=== PATIENT | female | born 1935 | race Caucasian/White ===

== ENCOUNTER 2016-11-26 07:02 | Outpatient (CLI) ==
[2015-12-06 11:27] VITALS: BMI 14.1
--- NOTE | 2016-11-26 08:34 | US ---
EXAM: Ultrasound retroperitoneal complete. HISTORY: Renal cyst. COMPARISON: 07/14/2016, 11/12/2010. TECHNIQUE: Multiple gustafson scale and color Doppler images. FINDINGS: Right kidney measures 8.9 x 3 x 3.1 cm. The left kidney measures 8.7 x 4.1 x 3.6 cm. Th in-walled circumscribed anechoic mass with posterior enhancement in the left kidney measures 2.5 x 1 .9 x 1.7 cm. Additional 0.6 x 0.5 x 0.4 cm anechoic mass seen in the left lower pole cortex. Bilat eral cortical thickness is normal. There is no hydronephrosis. Urinary bladder is unremarkable. IMPRESSION: Simple left renal cysts.
== END 2016-11-26 07:03 | disposition home or self-care (01) ==
LOC: RAD 07:02
PROVIDERS: ATTEND General Practice
DX: N28.1 Cyst of kidney, acquired (principal)
CPT/HCPCS: 76770

== ENCOUNTER 2016-12-10 09:03 | Outpatient (CLI) ==
[2015-12-06 11:27] VITALS: BMI 14.1
--- NOTE | 2016-12-10 10:49 | CT ---
EXAM: CT of the chest with contrast History: Follow-up lung nodules. Comparison: Chest CT 06/04/2016 Technique: Multiplanar CT images through the thorax were obtained following administration of IV con trast. Findings: Heart size is within normal limits. There is left atrial prominence. Coronary calcifica tions. Atherosclerotic vascular calcifications of the thoracic aorta. No pathologically enlarged t horacic lymph nodes. No consolidation. No pleural fluid and no pneumothorax. Mild emphysema. Focu s of subsegmental atelectasis again seen within the right lower lobe. Previously described lung nod ules are no longer seen. No suspicious lung masses or lung nodules. Within the visualized upper abdomen, left renal cyst. Cholecystectomy clips. No acute osseous abno rmalities. Impression: 1. No acute cardiopulmonary process. 2. Mild emphysema. 3. No suspicious lung masses or lung nodules.
== END 2016-12-10 09:04 | disposition home or self-care (01) ==
LOC: RAD 09:03
PROVIDERS: ATTEND Internal Medicine Hematology & Oncology
DX: R91.1 Solitary pulmonary nodule (principal)

== ENCOUNTER 2017-01-05 09:00 | Outpatient (CLI) | payer OTHER ==
[2015-12-06 11:27] VITALS: BMI 14.1
--- NOTE | 2017-01-05 09:46 | US ---
EXAM: RENAL ULTRASOUND, BILATERAL HISTORY: Left renal cyst, follow-up FINDINGS: Ultrasound renal, bilateral. Howe-scale ultrasound and color Doppler imaging was perform ed. The right kidney measures 9.0 x 3.4 x 3.8 centimeters. The left kidney measures 9.4 x 3.7 x 3.7 centimeters. General cortical echogenicity and volume are within normal limits for age. No hydronephrosis. The left kidney demonstrated three cystic masses one superiorly at 0.6 cm most consistent with a tin y simple cyst. A 1.9 cm cystic mass seen inferiorly may have a mildly thickened wall, otherwise sim ple. The largest cystic mass of the left kidney measured 2.9 x 0.5 x 1.9 cm and also may have areas of mild wall thickening. Otherwise simple. Urinary bladder was decompressed and grossly unremarka ble. IMPRESSION: Three left renal cortical cystic masses which appear to represent cysts although two of these have mildly thickened [place]. The cystic masses in this kidney visualized on previous exam of 11/26/2016 do not appear noticeably different when compared to today's exam. Renal cortical masses are best evaluated by renal protocol CT or MRI.
== END 2017-01-05 09:01 | disposition home or self-care (01) ==
LOC: RAD 09:00
PROVIDERS: ATTEND Internal Medicine Hematology & Oncology
DX: N28.1 Cyst of kidney, acquired (principal)
CPT/HCPCS: 76770

== ENCOUNTER 2017-01-22 12:00 | Outpatient (CLI) ==
[2015-12-06 11:27] VITALS: BMI 14.1
[2017-01-22 12:41] LABS: BILIRUBIN,URINE Negative (NEGATIVE); KETONES,URINE Negative (NEGATIVE); LEUKOCYTE ESTERASE ,URINE 3+ (NEGATIVE); NITRITE,URINE Positive (NEGATIVE); PH,URINE 5.5 (5-9); PROTEIN,URINE 1+ (NEGATIVE); URINE, BLOOD 2+ (NEGATIVE)
[2017-01-22 12:54] LABS: BASOPHILS % (AUTO) 0.6 % (0.0-3.0); EOSINOPHILS # (AUTO) 0.2 K/ul (0.0-0.7); EOSINOPHILS % (AUTO) 2.2 % (0.0-7.0); HEMATOCRIT 35.3 % (37.0-47.0); HEMOGLOBIN 11.5 g/dl (12.0-16.0); IMMATURE GRANULOCYTE % (AUTO) 0.4 % (0.0-5.0); LYMPHOCYTES # (AUTO) 2.2 K/uL (0.60-3.4); LYMPHOCYTES % (AUTO) 30.2 (10.0-50.0); MEAN CORPUSCULAR HEMOGLOBIN 32.6 pg (27.0-31.0); MEAN CORPUSCULAR HGB CONC 32.6 (31.8-35.4); MONOCYTES # (AUTO) 0.5 K/uL (0.4-2.0); MONOCYTES % (AUTO) 6.9 (0-10); NEUTROPHILS # (AUTO) 4.3 K/ul (2.0-6.9); NEUTROPHILS % (AUTO) 59.7; PLATELET COUNT 250 10^3/uL (140-440); RED BLOOD COUNT 3.53 10^6/ul (4.20-5.40); WHITE BLOOD COUNT 7.15 K/ul (4.6-10.2)
[2017-01-22 12:56] LABS: ADD URINE MICROSCOPIC YES
[2017-01-22 13:15] LABS: ALBUMIN 3.4 g/dL (3.4-5.0); ALBUMIN/GLOBULIN RATIO 0.87; ANION GAP 12.2; BILIRUBIN,TOTAL 0.29 mg/dL (0.00-1.20); BUN/CREATININE RATIO 19.26; CALCIUM 9.4 mg/dL (8.2-10.2); CHOL/HDL RATIO 2.4 (4.5-5.5); CREATININE 1.09 mg/dL (0.60-1.30); POTASSIUM 3.2 mmol/L (3.5-5.10); TOTAL PROTEIN 7.3 g/dL (5.8-8.1)
== END 2017-01-22 12:01 | disposition home or self-care (01) ==
LOC: LAB 12:00
PROVIDERS: ATTEND General Practice
DX: C18.9 Malignant neoplasm of colon, unspecified (principal); I65.29 Occlusion and stenosis of unspecified carotid artery; I10 Essential (primary) hypertension; N32.81 Overactive bladder; M81.0 Age-related osteoporosis without current pathological fracture; D51.9 Vitamin B12 deficiency anemia, unspecified; R31.29 Other microscopic hematuria; Z72.0 Tobacco use; Z79.899 Other long term (current) drug therapy
CPT/HCPCS: 36415; 80053; 80061; 81001; 82378; 85025; 87086; 87186

== ENCOUNTER 2017-03-26 15:47 | Outpatient (CLI) | payer OTHER ==
[2015-12-06 11:27] VITALS: BMI 14.1
[2017-03-26 16:28] LABS: BILIRUBIN,URINE 3+ (NEGATIVE); KETONES,URINE Trace (NEGATIVE); LEUKOCYTE ESTERASE ,URINE 3+ (NEGATIVE); NITRITE,URINE Positive (NEGATIVE); PH,URINE 5.5 (5-9); PROTEIN,URINE 3+ (NEGATIVE); URINE, BLOOD 3+ (NEGATIVE)
[2017-03-26 16:29] LABS: ADD URINE MICROSCOPIC YES
== END 2017-03-26 15:48 | disposition home or self-care (01) ==
LOC: LAB 15:47
PROVIDERS: ATTEND General Practice
DX: N39.0 Urinary tract infection, site not specified (principal)
CPT/HCPCS: 81001; 87086

== ENCOUNTER 2017-04-15 10:29 | Inpatient (IN) ==
[2017-04-15] MEDS ORDERED: NORCO 10-325 PO PRN (11:28)
[2017-04-15 12:01] VITALS: BMI 12.3
[2017-04-15] MEDS ORDERED: NORCO 10-325 ONE (12:31)
[2017-04-15 12:58] LABS: BASOPHILS % (AUTO) 0.3 % (0.0-3.0); EOSINOPHILS # (AUTO) 0.1 K/ul (0.0-0.7); EOSINOPHILS % (AUTO) 0.5 % (0.0-7.0); HEMATOCRIT 33.7 % (37.0-47.0); HEMOGLOBIN 11.7 g/dl (12.0-16.0); IMMATURE GRANULOCYTE % (AUTO) 0.5 % (0.0-5.0); LYMPHOCYTES # (AUTO) 1.8 K/uL (0.60-3.4); LYMPHOCYTES % (AUTO) 18.8 (10.0-50.0); MEAN CORPUSCULAR HEMOGLOBIN 32.6 pg (27.0-31.0); MEAN CORPUSCULAR HGB CONC 34.7 (31.8-35.4); MEAN CORPUSCULAR VOLUME 93.9 fl (81.0-99.0); MONOCYTES # (AUTO) 0.6 K/uL (0.4-2.0); MONOCYTES % (AUTO) 5.8 (0-10); NEUTROPHILS # (AUTO) 7.2 K/ul (2.0-6.9); NEUTROPHILS % (AUTO) 74.1; PLATELET COUNT 375 10^3/uL (140-440); RED BLOOD COUNT 3.59 10^6/ul (4.20-5.40); WHITE BLOOD COUNT 9.69 K/ul (4.6-10.2)
[2017-04-15] MEDS: INFUVITE ADULT 10 ML in D5%-1/2NS-KCL 20 MEQ/L IV SOL 1,000 ML IV SCH (13:21)
[2017-04-15] MEDS: PROTONIX IV 40 MG in SODIUM CHLORIDE 100 ML IV SCH ×2 (13:22→20:34)
[2017-04-15 13:36] LABS: ALBUMIN 3.1 g/dL (3.4-5.0); ALBUMIN/GLOBULIN RATIO 0.74; ANION GAP 15.2; BILIRUBIN,TOTAL 0.5 mg/dL (0.00-1.20); BUN/CREATININE RATIO 22.65; CALCIUM 9.2 mg/dL (8.2-10.2); CREATININE 1.28 mg/dL (0.60-1.30); POTASSIUM 3.2 mmol/L (3.5-5.10); TOTAL PROTEIN 7.3 g/dL (5.8-8.1)
[2017-04-15] MEDS: ATIVAN PO SCH ×2 (15:09→20:35)
[2017-04-15] MEDS: MEGACE PO SCH ×2 (16:54→20:35)
[2017-04-15] MEDS: LOVENOX SUBCUT SCH (16:55)
[2017-04-15 19:26] LABS: ADD URINE MICROSCOPIC YES; BILIRUBIN,URINE 3+ (NEGATIVE); KETONES,URINE Negative (NEGATIVE); LEUKOCYTE ESTERASE ,URINE 3+ (NEGATIVE); NITRITE,URINE Positive (NEGATIVE); PH,URINE 5.5 (5-9); PROTEIN,URINE 1+ (NEGATIVE); URINE, BLOOD 2+ (NEGATIVE)
[2017-04-15 19:40] LABS: BACTERIA,URINE 4+ (NOT PRESENT)
[2017-04-15] MEDS: ZOCOR PO SCH (20:35)
[2017-04-15] MEDS: AMBIEN PO SCH (20:35)
[2017-04-15] MEDS: NON-FORMULARY MEDICATION (Cyanocobalamin (Vitamin B-12) [Vitamin B-12] 1,000 MCG) PO SCH ×22 (20:35)
--- NOTE | 2017-04-15 20:42 | CT ---
EXAM: CT scan thorax without contrast HISTORY: Shortness of breath COMPARISON: CT scan thorax 12/10/2016 FINDINGS: Contiguous axial images were obtained through the thorax without contrast utilizing 5-mm collimation. Sagittal and coronal reconstructions were imaged and reviewed.. The thoracic inlet is unremarkable. The ascending aorta is ectatic measuring 3.4 cm. The heart is normal in size with co ronary artery calcification.. There is a 3 mm peripheral nodule within the right upper lobe. . The re are moderate emphysematous changes. There is no evidence of infiltrate or effusion. There has be en prior cholecystectomy. There are no lytic or blastic lesions. IMPRESSION: Chronic obstructive pulmonary disease. 3 mm nodule right upper lobe which merits follow-up.
--- NOTE | 2017-04-15 20:47 | CT ---
EXAM: CT abdomen pelvis without intravenous contrast 04/15/2017. Sagittal and coronal reformatted images obtained HISTORY: Abdominal pain COMPARISON: 06/04/2016 FINDINGS: The liver shows no acute abnormality. Gallbladder has been removed. The adrenal glands and kidneys show no acute abnormality. There is no urinary obstruction. The spleen and pancreas show no gross abnormality. Severe atherosclerotic vascular disease. No bowel obstruction. Tubular structure of the pelvis is c hronic. This may represent pessary. Unremarkable urinary bladder. No free air or free fluid. IMPRESSION: 1. No urinary or bowel obstruction. 2. Severe atherosclerotic vascular disease. 3. Status post cholecystectomy. 4. No acute inflammatory process identified within the abdomen or pelvis within the limitation of a noncontrast enhanced examination.
[2017-04-15] MEDS: DILAUDID 2 MG/ML SYRINGE IVP PRN (21:24)
[2017-04-16] MEDS ORDERED: INFUVITE ADULT IV ONE ×2 (04:23→17:03)
[2017-04-16] MEDS: INFUVITE ADULT 10 ML in D5%-1/2NS-KCL 20 MEQ/L IV SOL 1,000 ML IV SCH ×2 (04:31→17:16)
[2017-04-16] MEDS: DILAUDID 2 MG/ML SYRINGE IVP PRN ×3 (04:32→22:35)
[2017-04-16 05:08] LABS: BASOPHILS % (AUTO) 0.3 % (0.0-3.0); EOSINOPHILS # (AUTO) 0.1 K/ul (0.0-0.7); EOSINOPHILS % (AUTO) 1.4 % (0.0-7.0); HEMATOCRIT 30.6 % (37.0-47.0); HEMOGLOBIN 10.6 g/dl (12.0-16.0); IMMATURE GRANULOCYTE % (AUTO) 0.6 % (0.0-5.0); LYMPHOCYTES # (AUTO) 1.8 K/uL (0.60-3.4); MEAN CORPUSCULAR HEMOGLOBIN 32.7 pg (27.0-31.0); MEAN CORPUSCULAR HGB CONC 34.6 (31.8-35.4); MEAN CORPUSCULAR VOLUME 94.4 fl (81.0-99.0); MONOCYTES # (AUTO) 0.6 K/uL (0.4-2.0); MONOCYTES % (AUTO) 6.5 (0-10); NEUTROPHILS # (AUTO) 6.1 K/ul (2.0-6.9); NEUTROPHILS % (AUTO) 70.2; PLATELET COUNT 344 10^3/uL (140-440); RED BLOOD COUNT 3.24 10^6/ul (4.20-5.40); WHITE BLOOD COUNT 8.63 K/ul (4.6-10.2)
[2017-04-16 05:31] LABS: ALBUMIN 2.6 g/dL (3.4-5.0); ALBUMIN/GLOBULIN RATIO 0.7; ANION GAP 14.6; BILIRUBIN,TOTAL 0.37 mg/dL (0.00-1.20); BUN/CREATININE RATIO 22.09; CALCIUM 8.9 mg/dL (8.2-10.2); CREATININE 0.86 mg/dL (0.60-1.30); POTASSIUM 3.6 mmol/L (3.5-5.10); TOTAL PROTEIN 6.3 g/dL (5.8-8.1)
[2017-04-16] MEDS ORDERED: NON-FORMULARY MEDICATION (Amlodipine Besylate [Amlodipine Besylate] 5 MG) PO SCH (09:00)
[2017-04-16] MEDS: NORVASC PO SCH (09:35)
[2017-04-16] MEDS: LOVENOX SUBCUT SCH (09:36)
[2017-04-16] MEDS: MEGACE PO SCH ×2 (09:36→21:23)
[2017-04-16] MEDS: ATIVAN PO SCH ×3 (09:36→21:23)
[2017-04-16] MEDS: VITAMIN B-12 IM SCH (09:36)
[2017-04-16] MEDS: ASPIRIN EC PO SCH (09:36)
[2017-04-16] MEDS: PROTONIX IV 40 MG in SODIUM CHLORIDE 100 ML IV SCH ×2 (09:37→21:23)
--- NOTE | 2017-04-16 10:12 | PN ---
DATE OF VISIT: 04/15/17 This patient was admitted to the hospital because of abdominal pain, mostly upper. She had not been sleeping because of the pain. She presented herself to the emergency room last night and was discharged and instructed to see me today. The patient is alert and markedly emaciated, pale with sallow color. The patient, today, told me at the office that she would stop smoking. I had told her time and time again that she should stop smoking, but now she finally will try to stop. I had ordered a CT scan of the abdomen and pelvis, plus chest without contrast and they have not done it and it is now 7:50 p.m. I did advise the nurse to call x-ray to the procedure as soon as they can. This patient had a colon carcinoma and this was resected-right hemicolectomy. LUNGS: The lungs have diminished breath sounds, bilaterally, but no rales or wheezing. VITAL SIGNS: At 5:59 p.m. showed a temperature 97.6, pulse 57, blood pressure 161/60, respiratory rate 14, oxygen saturation 98 at room air. LABS: Showed normal WBC 9,690, hemoglobin 11.7, hematocrit 33.7. Chemistry showed slightly lower potassium at 3.2, BUN at 29, creatinine 1.28, E GFR 40. I am interested in what that will be tomorrow with some hydration. Liver panel is normal and urinalysis showed 2+ blood, positive nitrite, 3+ bilirubin, leukocyte esterase 3+, RBC 30-50, WBC 30-50, squamous cells 10-20, 4+ bacteria. This patient has a vaginal pessary. This will be repeated tomorrow with a midstream clean catch catheterized urine, plus culture is needed. No antibiotic is given at this time. Further tests will depend upon the results of the CT scan of the abdomen and pelvis and chest. CONDITION: Failure to thrive. PROGNOSIS: Poor. MTDD
[2017-04-16] MEDS: NON-FORMULARY MEDICATION (Cyanocobalamin (Vitamin B-12) [Vitamin B-12] 1,000 MCG) PO SCH ×44 (10:43→21:24)
[2017-04-16] MEDS: AMBIEN PO SCH (21:23)
[2017-04-16] MEDS: ZOCOR PO SCH (21:24)
[2017-04-17] MEDS: DILAUDID 2 MG/ML SYRINGE IVP PRN (04:11)
[2017-04-17] MEDS: INFUVITE ADULT 10 ML in D5%-1/2NS-KCL 20 MEQ/L IV SOL 1,000 ML IV SCH ×4 (06:42→21:38)
[2017-04-17] MEDS ORDERED: INFUVITE ADULT IV ONE ×2 (06:42→21:18)
[2017-04-17] MEDS: ASPIRIN EC PO SCH (07:56)
[2017-04-17] MEDS: PROTONIX IV 40 MG in SODIUM CHLORIDE 100 ML IV SCH ×2 (08:00→20:13)
[2017-04-17] MEDS: NORVASC PO SCH (09:17)
[2017-04-17] MEDS: LOVENOX SUBCUT SCH (09:17)
[2017-04-17] MEDS: MEGACE PO SCH ×2 (09:17→20:13)
[2017-04-17] MEDS: ATIVAN PO SCH ×3 (09:18→20:13)
[2017-04-17] MEDS: NON-FORMULARY MEDICATION (Cyanocobalamin (Vitamin B-12) [Vitamin B-12] 1,000 MCG) PO SCH ×44 (09:23→20:14)
[2017-04-17] MEDS ORDERED: DILAUDID 1 MG/ML SYRINGE IVP PRN (09:38)
[2017-04-17] MEDS: LEXAPRO PO SCH (13:27)
[2017-04-17] MEDS: DILAUDID 1 MG/ML SYRINGE IVP PRN ×2 (15:21→23:17)
[2017-04-17 18:06] LABS: BILIRUBIN,URINE Negative (NEGATIVE); KETONES,URINE Negative (NEGATIVE); LEUKOCYTE ESTERASE ,URINE 3+ (NEGATIVE); NITRITE,URINE Negative (NEGATIVE); PH,URINE 5.5 (5-9); PROTEIN,URINE Negative (NEGATIVE); URINE, BLOOD Trace-lysed (NEGATIVE)
[2017-04-17 18:08] LABS: ADD URINE MICROSCOPIC YES; BACTERIA,URINE TRACE (NOT PRESENT)
[2017-04-17] MEDS: ZOCOR PO SCH (20:13)
[2017-04-17] MEDS: AMBIEN PO SCH (20:13)
[2017-04-18] MEDS: DILAUDID 1 MG/ML SYRINGE IVP PRN ×3 (05:18→21:06)
[2017-04-18] MEDS ORDERED: INFUVITE ADULT IV ONE ×2 (07:43→21:03)
[2017-04-18] MEDS: PROTONIX IV 40 MG in SODIUM CHLORIDE 100 ML IV SCH ×2 (08:28→20:08)
[2017-04-18] MEDS: MEGACE PO SCH ×2 (08:28→20:08)
[2017-04-18] MEDS: LOVENOX SUBCUT SCH (08:29)
[2017-04-18] MEDS: NORVASC PO SCH (08:29)
[2017-04-18] MEDS: ASPIRIN EC PO SCH (08:29)
[2017-04-18] MEDS: LEXAPRO PO SCH (08:29)
[2017-04-18] MEDS: ATIVAN PO SCH ×3 (08:38→20:08)
[2017-04-18] MEDS: NON-FORMULARY MEDICATION (Cyanocobalamin (Vitamin B-12) [Vitamin B-12] 1,000 MCG) PO SCH ×44 (08:39→20:09)
[2017-04-18] MEDS: INFUVITE ADULT 10 ML in D5%-1/2NS-KCL 20 MEQ/L IV SOL 1,000 ML IV SCH ×2 (08:41→21:07)
[2017-04-18] MEDS ORDERED: PROTONIX IV ONE (19:49)
[2017-04-18] MEDS ORDERED: ROCEPHIN ONE ×2 (19:50→20:00)
[2017-04-18] MEDS ORDERED: ROCEPHIN 1 GM in SODIUM CHLORIDE 50 ML IV SCH (20:00)
[2017-04-18] MEDS ORDERED: SODIUM CHLORIDE 50 ML IV ONE (20:06)
[2017-04-18] MEDS: AMBIEN PO SCH (20:08)
[2017-04-18] MEDS ORDERED: SODIUM CHLORIDE 100 ML IV ONE (20:08)
[2017-04-18] MEDS: ZOCOR PO SCH (20:08)
[2017-04-19] MEDS: DILAUDID 1 MG/ML SYRINGE IVP PRN ×3 (02:57→19:19)
[2017-04-19] MEDS: MEGACE PO SCH ×2 (08:07→20:01)
[2017-04-19] MEDS: LOVENOX SUBCUT SCH (08:07)
[2017-04-19] MEDS: PROTONIX IV 40 MG in SODIUM CHLORIDE 100 ML IV SCH ×2 (08:07→20:45)
[2017-04-19] MEDS: NORVASC PO SCH (08:07)
[2017-04-19] MEDS: ATIVAN PO SCH ×3 (08:08→20:00)
[2017-04-19] MEDS: ASPIRIN EC PO SCH (08:08)
[2017-04-19] MEDS: LEXAPRO PO SCH (08:08)
[2017-04-19] MEDS: NON-FORMULARY MEDICATION (Cyanocobalamin (Vitamin B-12) [Vitamin B-12] 1,000 MCG) PO SCH ×44 (08:15→20:04)
[2017-04-19] MEDS ORDERED: INFUVITE ADULT IV ONE ×2 (09:22→18:43)
[2017-04-19] MEDS: INFUVITE ADULT 10 ML in D5%-1/2NS-KCL 20 MEQ/L IV SOL 1,000 ML IV SCH ×2 (09:56→21:49)
[2017-04-19] MEDS: NORCO 7.5-325 PO PRN (15:21)
[2017-04-19] MEDS: ROCEPHIN 1 GM in SODIUM CHLORIDE 50 ML IV SCH (20:00)
[2017-04-19] MEDS: AMBIEN PO SCH (20:01)
[2017-04-19] MEDS: ZOCOR PO SCH (20:01)
[2017-04-20] MEDS: DILAUDID 1 MG/ML SYRINGE IVP PRN ×3 (01:14→19:44)
[2017-04-20] MEDS: NORCO 7.5-325 PO PRN ×2 (05:10→16:43)
[2017-04-20] MEDS: NORVASC PO SCH (08:16)
[2017-04-20] MEDS: MEGACE PO SCH ×2 (08:16→20:40)
[2017-04-20] MEDS: LOVENOX SUBCUT SCH (08:16)
[2017-04-20] MEDS: ASPIRIN EC PO SCH (08:16)
[2017-04-20] MEDS: ATIVAN PO SCH ×3 (08:17→20:40)
[2017-04-20] MEDS: LEXAPRO PO SCH (08:17)
[2017-04-20] MEDS: NON-FORMULARY MEDICATION (Cyanocobalamin (Vitamin B-12) [Vitamin B-12] 1,000 MCG) PO SCH ×44 (08:45→20:40)
[2017-04-20] MEDS: PROTONIX IV 40 MG in SODIUM CHLORIDE 100 ML IV SCH ×2 (08:51→21:29)
[2017-04-20] MEDS ORDERED: INFUVITE ADULT IV ONE (11:24)
[2017-04-20] MEDS: INFUVITE ADULT 10 ML in D5%-1/2NS-KCL 20 MEQ/L IV SOL 1,000 ML IV SCH (11:31)
[2017-04-20] MEDS: ROCEPHIN 1 GM in SODIUM CHLORIDE 50 ML IV SCH (20:15)
[2017-04-20] MEDS: ZOCOR PO SCH (20:39)
[2017-04-20] MEDS: AMBIEN PO SCH (20:40)
[2017-04-21] MEDS ORDERED: INFUVITE ADULT IV ONE ×2 (01:24→14:14)
[2017-04-21] MEDS: NORCO 7.5-325 PO PRN ×3 (01:30→18:32)
[2017-04-21] MEDS: INFUVITE ADULT 10 ML in D5%-1/2NS-KCL 20 MEQ/L IV SOL 1,000 ML IV SCH ×2 (01:32→14:33)
[2017-04-21] MEDS: DILAUDID 1 MG/ML SYRINGE IVP PRN ×2 (04:59→14:38)
[2017-04-21] MEDS: ASPIRIN EC PO SCH (08:34)
[2017-04-21] MEDS: ATIVAN PO SCH ×3 (08:34→20:47)
[2017-04-21] MEDS: MEGACE PO SCH ×2 (08:34→20:47)
[2017-04-21] MEDS: NORVASC PO SCH (08:34)
[2017-04-21] MEDS: PROTONIX IV 40 MG in SODIUM CHLORIDE 100 ML IV SCH ×2 (08:34→20:48)
[2017-04-21] MEDS: LOVENOX SUBCUT SCH (08:35)
[2017-04-21] MEDS: LEXAPRO PO SCH (08:35)
[2017-04-21] MEDS: NON-FORMULARY MEDICATION (Cyanocobalamin (Vitamin B-12) [Vitamin B-12] 1,000 MCG) PO SCH ×44 (08:50→20:48)
[2017-04-21] MEDS ORDERED: WELLBUTRIN SR PO SCH (09:00)
[2017-04-21] MEDS: WELLBUTRIN PO SCH ×2 (09:32→20:47)
[2017-04-21] MEDS: NICODERM 21 MG TD SCH (09:32)
[2017-04-21] MEDS: AMBIEN PO SCH (20:47)
[2017-04-21] MEDS: ROCEPHIN 1 GM in SODIUM CHLORIDE 50 ML IV SCH (21:52)
[2017-04-22] MEDS: NORCO 7.5-325 PO PRN ×3 (02:34→18:48)
[2017-04-22] MEDS ORDERED: INFUVITE ADULT IV ONE ×2 (04:00→17:23)
[2017-04-22] MEDS: INFUVITE ADULT 10 ML in D5%-1/2NS-KCL 20 MEQ/L IV SOL 1,000 ML IV SCH ×2 (04:04→17:28)
[2017-04-22] MEDS: PROTONIX IV 40 MG in SODIUM CHLORIDE 100 ML IV SCH (08:31)
[2017-04-22] MEDS: LOVENOX SUBCUT SCH (08:32)
[2017-04-22] MEDS: MEGACE PO SCH ×2 (08:32→20:30)
[2017-04-22] MEDS: WELLBUTRIN PO SCH ×2 (08:32→20:30)
[2017-04-22] MEDS: NICODERM 21 MG TD SCH (08:32)
[2017-04-22] MEDS: ATIVAN PO SCH ×3 (08:32→20:30)
[2017-04-22] MEDS: LEXAPRO PO SCH (08:32)
[2017-04-22] MEDS: ASPIRIN EC PO SCH (08:32)
[2017-04-22] MEDS: NORVASC PO SCH (08:32)
[2017-04-22] MEDS: NON-FORMULARY MEDICATION (Cyanocobalamin (Vitamin B-12) [Vitamin B-12] 1,000 MCG) PO SCH ×44 (09:25→20:31)
[2017-04-22] MEDS ORDERED: DECADRON 4 MG/ML SDV IM STA (10:25)
[2017-04-22] MEDS ORDERED: DILAUDID 2 MG/ML SYRINGE IVP PRN ×2 (10:26)
[2017-04-22] MEDS: DILAUDID 1 MG/ML SYRINGE IVP PRN ×2 (11:37→20:31)
[2017-04-22] MEDS: VOLTAREN 1% GEL TP SCH ×2 (13:50→20:31)
[2017-04-22] MEDS: PROTONIX PO SCH (17:06)
[2017-04-22] MEDS ORDERED: DILAUDID 1 MG/ML SYRINGE ONE ×2 (19:22→20:31)
[2017-04-22] MEDS: ROCEPHIN 1 GM in SODIUM CHLORIDE 50 ML IV SCH (20:30)
[2017-04-22] MEDS: AMBIEN PO SCH (20:30)
[2017-04-23] MEDS ORDERED: DILAUDID 1 MG/ML SYRINGE ONE ×2 (03:06→03:09)
[2017-04-23] MEDS: DILAUDID 1 MG/ML SYRINGE IVP PRN (03:09)
[2017-04-23] MEDS: PROTONIX PO SCH (05:38)
[2017-04-23] MEDS: NORCO 7.5-325 PO PRN ×2 (06:31→13:06)
[2017-04-23] MEDS ORDERED: INFUVITE ADULT IV ONE (07:46)
[2017-04-23] MEDS: VOLTAREN 1% GEL TP SCH (08:11)
[2017-04-23] MEDS: WELLBUTRIN PO SCH (08:11)
[2017-04-23] MEDS: LEXAPRO PO SCH (08:12)
[2017-04-23] MEDS: ASPIRIN EC PO SCH (08:12)
[2017-04-23] MEDS: VITAMIN B-12 IM SCH (08:12)
[2017-04-23] MEDS: NORVASC PO SCH (08:12)
[2017-04-23] MEDS: MEGACE PO SCH (08:12)
[2017-04-23] MEDS: LOVENOX SUBCUT SCH (08:12)
[2017-04-23] MEDS: ATIVAN PO SCH (08:13)
[2017-04-23] MEDS: NON-FORMULARY MEDICATION (Cyanocobalamin (Vitamin B-12) [Vitamin B-12] 1,000 MCG) PO SCH ×22 (08:14)
[2017-04-23] MEDS: NICODERM 21 MG TD SCH (08:17)
[2017-04-23] MEDS: INFUVITE ADULT 10 ML in D5%-1/2NS-KCL 20 MEQ/L IV SOL 1,000 ML IV SCH (08:18)
[2017-04-23 10:22] VITALS: BP 136/66; TEMP 97.1
--- NOTE | 2017-04-30 14:58 | PN ---
DATE OF VISIT: 04/16/17 The patient, today, is alert and weighs the same. She told me that the pain is less. This patient is receiving Protonix 40 mg IV twice a day. The CT scan of the abdomen and pelvis is unremarkable, as well as the chest CT without contrast. This patient will need to stay here in the hospital for several days more. This patient has problems of not able to thrive. She did refuse to eat today and that would be a problem if she continues to refuse to eat. This patient is given Megace 400 mg twice a day. LUNGS: Diminished breath sounds, but no rales. HEART: Audible with good tones. ABDOMEN: Scaphoid with minimal tenderness in the epigastric area. Bowel sounds are active. This patient is emaciated. VITAL SIGNS: At 5:50 p.m. showed a temperature of 97.1, pulse 74, blood pressure 135/64, respiratory rate 12, oxygen saturation 97 at room air. LABS: The patient's BUN is down to 19 from 29 and the E GFR is now 63 and creatinine is 0.86 from 1.28. This patient will be given Glucerna and I advised the nurse to wait and see whether she drinks the supplement. MTDD
--- NOTE | 2017-07-16 11:00 | DS ---
DATE OF SERVICE: 04/23/17 PATIENT IDENTIFICATION: This is an 82-year-old female who was seen initially in the emergency room and was discharged and later seen at the office because of abdominal pain in the epigastric area. The patient denied any vomiting with the abdominal pain but did have anorexia. She had continued weight loss because of lack of appetite. The patient's CBC in the emergency room was unremarkable. Normal WBC with moderate anemia. The EGFR was diminished. The patient was alert and responsive except for the pain that she rated 10 on a scale of 1 to 10. No significant findings in examination except for the tenderness in the epigastric area which was remarkable but there are no masses. The lungs have diminished breath sounds but no rales or wheezing. Heart has normal sinus rhythm. CT scan of the abdomen and pelvis reveals no remarkable abnormalities. CT scan of the chest without contrast showed 3 mm nodule otherwise unremarkable. The patient's CBC on 04/15 and 04/16 was essentially the same. The BUN has decreased to 19 and GFR has returned to 63 from 40. CEA is 2.6, normal. TSH normal 1.315. Serum albumin is low but the total protein is normal. The patient was given Protonix 40 mg intravenously every 12 hours and Hydromorphone 1 mg intravenously q.6hr p.r.n. pain. She also was given Megace 400 mg twice a day. The patient's appetite had varied between 25 to 75% of the meals consumed. The patient had gained some weight and at the time of discharge she weighed 86 1/4 lbs from 73. Her blood pressure ranged within acceptable limits. She also was given Ceftriaxone 1 gm intravenously daily because of the chronic lung problems. She was also given intravenous fluids with electrolytes plus multivitamins during the course of her hospitalization. The patient at time of discharge was alert, ambulatory with some help looking much better and somewhat stronger. Lungs still clear although breath sounds are diminished. Heart is audible and regular with good tones. The epigastric pain is much less as well as tenderness. The patient is discharged with the following medications: Wellbutrin 75 mg twice a day, Omnicef 300 mg every 12 hours, Lexapro 10 mg daily, Megace 400 mg twice a day, Protonix 40 mg daily before a meal. Continue Amlodipine, aspirin, B12, Hydrocodone. The patient is advised to stop by the office to get weighed so we can get the weight in comparison with the next appointment. She was given an appointment 05/07/17 at 9:30 a.m. and should get in touch with the office if and when she has further problems. An appointment with GI doctor was also scheduled and is 06/15/[address] Mendoza's office. FINAL DIAGNOSES: 1. PEPTIC ULCER DISEASE, IMPROVED 2. ANOREXIA, ETIOLOGY UNDETERMINED, IMPROVED 3. HISTORY OF COLON CARCINOMA RESECTED THREE YEARS AGO 4. CHRONIC TOBACCO USE AND ABUSE, PERSISTENT 5. CHRONIC BRONCHITIS SECONDARY TO CHRONIC TOBACCO USE 6. ANEMIA, MODERATE 7. HYPERTENSION, CONTROLLED PROGNOSIS: Guarded to poor MTDD
== END 2017-04-23 15:39 | disposition home or self-care (01) | DRG 384 ==
LOC: MEDSURG A 10:29
PROVIDERS: ADMIT General Practice; ATTEND General Practice
DX: K27.3 Acute peptic ulcer, site unspecified, without hemorrhage or perforation (principal); F50.89 Other specified eating disorder; J44.9 Chronic obstructive pulmonary disease, unspecified; D64.9 Anemia, unspecified; I10 Essential (primary) hypertension; F17.200 Nicotine dependence, unspecified, uncomplicated; Z90.49 Acquired absence of other specified parts of digestive tract; Z85.038 Personal history of other malignant neoplasm of large intestine; Z96.0 Presence of urogenital implants; Z79.891 Long term (current) use of opiate analgesic; Z79.899 Other long term (current) drug therapy
CPT/HCPCS: 36415; 80053; 81001; 82378; 84443; 85025; 87086; 87186; 97802

== ENCOUNTER 2017-05-29 13:20 | Inpatient (IN) ==
[2017-05-29 13:43] VITALS: BMI 12.5
[2017-05-29] MEDS ORDERED: INFUVITE ADULT 10 ML in D5%-1/2NS-KCL 20 MEQ/L IV SOL 1,000 ML IV SCH (14:00)
[2017-05-29 14:16] LABS: BASOPHILS % (AUTO) 0.2 % (0.0-3.0); EOSINOPHILS % (AUTO) 0.1 % (0.0-7.0); HEMATOCRIT 36.2 % (37.0-47.0); HEMOGLOBIN 12.2 g/dl (12.0-16.0); IMMATURE GRANULOCYTE % (AUTO) 0.4 % (0.0-5.0); MEAN CORPUSCULAR HGB CONC 33.7 (31.8-35.4); MONOCYTES # (AUTO) 0.6 K/uL (0.4-2.0); MONOCYTES % (AUTO) 6.3 (0-10); NEUTROPHILS # (AUTO) 7.5 K/ul (2.0-6.9); PLATELET COUNT 381 10^3/uL (140-440); RED BLOOD COUNT 3.81 10^6/ul (4.20-5.40); WHITE BLOOD COUNT 9.18 K/ul (4.6-10.2)
--- NOTE | 2017-05-29 14:44 | DI ---
EXAM: Chest two view, frontal and lateral views. HISTORY: Initial presentation for a fall. Confusion. COMPARISON: 04/15/2017. FINDINGS: The heart size is normal. Atherosclerotic calcifications are present. There is no pulmon aubrie vascular congestion. The lungs are clear. No pleural effusion or pneumothorax is seen. No acut e osseous abnormality identified. Severe anterior wedging deformity of T12 noted which appears new IMPRESSION: 1. No acute cardiopulmonary abnormality. 1. Severe anterior wedging deformity of T12 which is new.
--- NOTE | 2017-05-29 14:45 | DI ---
EXAM: Radiographs, lumbar spine HISTORY: Initial presentation for back injury due to a fall. COMPARISON: Abdominal CT 04/15/2017. TECHNIQUE: Four views. FINDINGS: Curvature and alignment are normal. There is severe anterior wedging deformity of T12 whi ch is new from prior abdominal CT. Lumbar vertebral body heights are normal. Disc heights maintaine d. Mild endplate osteophyte formation and facet arthropathy noted. Extensive atherosclerotic calcif ications present. Clips seen in the right abdomen. IMPRESSION: Severe anterior wedging deformity of T12, new since 04/15/2017. Consider correlation with MRI.
--- NOTE | 2017-05-29 14:48 | DI ---
Exam: Three x-rays of the thoracic spine. Comparison: 04/15/2017. CT of the chest. Reason for exam: Confusion with fall. FINDINGS: Compression deformity in what is presumed to be the T12 vertebral body. The imaged osseou s structures appear diffusely demineralized. There is relative maintenance of the thoracic kyphotic curve. Impression: New compression deformity in what is presumed to be the T12 vertebral body with approximately 70% los s of vertebral body height. Report faxed at [id number] hours on 05/29/2017.
--- NOTE | 2017-05-29 15:09 | CT ---
Exam: CT of the brain without intravenous contrast. Comparison: CT sinuses performed 11/15/2014. Reason for exam: Confusion with fall. FINDINGS: No acute intracranial hemorrhage, mass effect, ventricular dilatation, or territorial infa rction. Parenchymal changes are seen consistent with chronic microvascular disease and age related a trophy. There are calcifications seen within the vertebral arteries. The quadrigeminal and ambient cisterns are patent. There is no extraaxial fluid collection. The calvarium is intact. The paranasal sinuses and mastoid air cells are unopacified. Impression: 1. No acute intracranial findings. 2. Parenchymal changes consistent with chronic microvascular disease and age related atrophy. Report faxed at 1502 hours on 05/29/2017
[2017-05-29] MEDS: DILAUDID 2 MG/ML SYRINGE IVP PRN ×2 (15:10→20:44)
--- NOTE | 2017-05-29 15:13 | CT ---
EXAM: CT cervical spine. HISTORY: Fall, contusion. TECHNIQUE: CT cervical spine without contrast. Detailed axial sections. Coronal and sagittal re-fo rmations. COMPARISON: None FINDINGS: No acute fracture or subluxation. There is normal vertebral body height and alignment. Facet joints are covered. Lateral masses of C1 and C2 are normally aligned and the odontoid process is intact. D egenerative disc and facet disease is present most apparent at C4/C5 and C5/C6 where there is mild ce ntral canal stenosis. There is mild bilateral neural foraminal narrowing at the C5/C6 level. Latera l masses of C1 and C2 are normally aligned and the odontoid process is intact. No paraspinal hematom a. IMPRESSION: No acute fracture or subluxation.
[2017-05-29 15:28] LABS: ALBUMIN 2.8 g/dL (3.4-5.0); ALBUMIN/GLOBULIN RATIO 0.62; ANION GAP 17.5; BILIRUBIN,TOTAL 0.97 mg/dL (0.00-1.20); CALCIUM 9.1 mg/dL (8.2-10.2); CREATININE 0.75 mg/dL (0.60-1.30); TOTAL PROTEIN 7.3 g/dL (5.8-8.1)
[2017-05-29 15:40] LABS: POTASSIUM 2.5 mmol/L (3.5-5.10)
[2017-05-29] MEDS ORDERED: BETAPACE PO STA (16:10)
--- NOTE | 2017-05-29 16:17 | RS.PTINEVL ---
Subjective - Patient information Date of Evaluation: 05/29/17 Date of Arrival on Unit: 05/29/17 Admitted From:: Home Usual Living Arrangement: With Spouse Home Environment: House, Stairs (few), No rail Medical History: Hypertension, COPD, Cancer (colon) Medical History Comments:: irregular heartbeat LATEX ALLERGY?: No Surgical History: Hysterectomy, Other (colon resection) Subjective Information/ Patient Comments:: pt admitted to hospital from home, s/ p fall at home. pt with new onset wedge compression fx T12. pt states she is feeling better this PM - Level of function Prior to this admission, the patient could do the following:: Independent Selfcare, Independent ADL's, Independent Ambulation Current Level of Function: Partially Dependent Current Equipment Used at Home: none Interventions - Objective Patient Orientation: Person, Place, Time, Situation Current Interventions: IV's, Telemetry Observation: pt with fragile skin. Range of Motion - ROM Right Upper Extremity AROM: WFL's Left Upper Extremity AROM: WFL's Right Lower Extremity AROM: WFL's Left Lower Extremity AROM: WFL's Muscle Strength - Muscle Strength Right Upper Extremity Strength: Mild Weakness (RUE shld flex 3+/5, elbow flex 4- /5, ext 3+/5) Left Upper Extremity Strength: Mild Weakness (LUE shld flex 3+/5, elbow flex 4-/ 5, ext 3+/5) Right Lower Extremity Strength: Mild Weakness (RLE hip flex 3+/5, knee flex/ext 4-/5, ankle Df/PF 4-/5) Left Lower Extremity Strength: Mild Weakness (LLE hip flex 3+/5, knee flex/ext 4 -/5, ankle Df/PF 4-/5) Sensation - Sensation Right Upper Extremity Sensation: Intact/Normal Left Upper Extremity Sensation: Intact/Normal Right Lower Extremity Sensation: Intact/Normal Left Lower Extremity Sensation: Intact/Normal Palpation Palpation Findings: None/Normal Balance - Sitting Balance and Reactions Static Sitting Balance: Good Dynamic Sitting Balance: Fair Sitting Protective Reactions: Delayed Left, Delayed Right - Standing Balance and Reactions Static Standing Balance: Fair Dynamic Standing Balance: Poor Standing Equilibrium Reactions: Delayed Left, Delayed Right Standing Protective Reactions: Delayed Left, Delayed Right Functional Mobility - Bed Mobility Rolling R/L: Min Assist Supine to Sit: Min Assist - Transfers Sit to Stand: Min Assist Stand to Sit: Min Assist - Safety Awareness Safety Awareness: Fair Ambulation - Ambulation Assistive Device Used: Gait belt (with CORN DETASSELER MACHINE OPERATOR) Orthotic/Prosthetic Device: No Distance: 5ft Assistance needed with Ambulation: Min Assist Gait Deviations: Forward posture, Short stride Ambulation Comments: pt amb approx 5ft with CORN DETASSELER MACHINE OPERATOR to chair. No further amb due to increased HR 160 at rest. Nsg staff aware. Treatment time - Time with patient Total treatment time: 27 Patient Education - Education Patient Education: Education of Plan of Care Teaching Recipient: Patient Teaching Methods: Discussion, Demonstration Comments: Discussed POC with pt and she verbalized understanding. pt goal is to return home with as independent as possible Assessment - Assessment Problem List:: Decreased level of function, Requires training/education, Decreased safety/Risk of falls, Weakness Rehab Potential: Good Further Therapy Indicated?: Yes Short Term Goals GOAL #1: pt transfer sup to/from sit to/from stand SBA to CGA Goal to be met by: 06/01/17 GOAL #2: pt amb with AAD 50ft with CGA with no loss of balance Goal to be met by: 06/01/17 GOAL #3: pt demonstrate independence positioning in bed for comfort/pressure relief Goal to be met by: 06/01/17 Flower Stripper Goals GOAL #1: pt tranfer independently sup to/from sit to/from stand Goal to be met by: 06/04/17 GOAL #2: pt amb functional distances with AAD independently with no loss of balance Goal to be met by: 06/04/17 GOAL #3: pt with improved strength BLE 4 to 4+/5 and indepenent with HEP Goal to be met by: 06/04/17 Plan Plan of Care: Therapeutic EX, Therapeutic Activity, Self-Care/Home Management Frequency of Treatment: 1-2 X day, as tolerated Duration of Treatment: 1 Week Anticipated Discharge Destination: Home
[2017-05-29] MEDS ORDERED: POTASSIUM CHLORIDE 20 MEQ VIAL-ADDITIVE ONLY IV ONE (16:20)
[2017-05-29] MEDS ORDERED: D5%-1/2NS-KCL 40 MEQ/L IV SOL 1,000 ML IV SCH (16:30)
[2017-05-29 16:33] LABS: TROPONIN I 0.03 ng/ml (0.0000-0.4000)
[2017-05-29] MEDS ORDERED: K-DUR PO STA (16:35)
[2017-05-29] MEDS: INFUVITE ADULT 10 ML in D5%-1/2NS-KCL 40 MEQ/L IV SOL 1,000 ML IV SCH (17:06)
[2017-05-29] MEDS: BETAPACE PO SCH (20:42)
[2017-05-29] MEDS ORDERED: POTASSIUM CHL 10% ORAL SOL PO SCH (21:00)
[2017-05-29] MEDS ORDERED: K-DUR PO ONE (21:00)
[2017-05-30] MEDS: DILAUDID 2 MG/ML SYRINGE IVP PRN ×5 (01:46→22:56)
[2017-05-30] MEDS ORDERED: INFUVITE ADULT IV ONE ×2 (04:15→17:04)
[2017-05-30] MEDS: INFUVITE ADULT 10 ML in D5%-1/2NS-KCL 40 MEQ/L IV SOL 1,000 ML IV SCH (04:23)
[2017-05-30 04:46] LABS: ADD URINE MICROSCOPIC YES; BILIRUBIN,URINE 3+ (NEGATIVE); KETONES,URINE Trace (NEGATIVE); LEUKOCYTE ESTERASE ,URINE 2+ (NEGATIVE); NITRITE,URINE Negative (NEGATIVE); PROTEIN,URINE 3+ (NEGATIVE); URINE, BLOOD 2+ (NEGATIVE)
[2017-05-30 04:47] LABS: BACTERIA,URINE 2+ (NOT PRESENT)
[2017-05-30 05:30] LABS: BASOPHILS % (AUTO) 0.3 % (0.0-3.0); EOSINOPHILS # (AUTO) 0.1 K/ul (0.0-0.7); EOSINOPHILS % (AUTO) 1.5 % (0.0-7.0); HEMATOCRIT 32.9 % (37.0-47.0); HEMOGLOBIN 10.5 g/dl (12.0-16.0); IMMATURE GRANULOCYTE % (AUTO) 0.6 % (0.0-5.0); LYMPHOCYTES # (AUTO) 1.5 K/uL (0.60-3.4); LYMPHOCYTES % (AUTO) 17.5 (10.0-50.0); MEAN CORPUSCULAR HEMOGLOBIN 31.5 pg (27.0-31.0); MEAN CORPUSCULAR HGB CONC 31.9 (31.8-35.4); MEAN CORPUSCULAR VOLUME 98.8 fl (81.0-99.0); MONOCYTES # (AUTO) 0.7 K/uL (0.4-2.0); NEUTROPHILS # (AUTO) 6.3 K/ul (2.0-6.9); NEUTROPHILS % (AUTO) 72.1; PLATELET COUNT 282 10^3/uL (140-440); RED BLOOD COUNT 3.33 10^6/ul (4.20-5.40); WHITE BLOOD COUNT 8.75 K/ul (4.6-10.2)
[2017-05-30 06:06] LABS: ALBUMIN 2.5 g/dL (3.4-5.0); ALBUMIN/GLOBULIN RATIO 0.69; ANION GAP 14.2; BILIRUBIN,TOTAL 0.59 mg/dL (0.00-1.20); BUN/CREATININE RATIO 25.33; CALCIUM 8.5 mg/dL (8.2-10.2); CREATININE 0.75 mg/dL (0.60-1.30); POTASSIUM 4.2 mmol/L (3.5-5.10); TOTAL PROTEIN 6.1 g/dL (5.8-8.1)
[2017-05-30] MEDS: HYDROCHLOROTHIAZIDE PO SCH (09:48)
[2017-05-30] MEDS: ASPIRIN EC PO SCH (09:49)
[2017-05-30] MEDS: K-DUR PO SCH ×2 (09:49→11:50)
[2017-05-30] MEDS: WELLBUTRIN SR PO SCH (09:49)
[2017-05-30] MEDS: BETAPACE PO SCH (09:49)
[2017-05-30] MEDS: NORVASC PO SCH (09:49)
[2017-05-30] MEDS: COREG PO SCH ×2 (11:50→17:09)
[2017-05-30] MEDS ORDERED: ZOFRAN 4 MG/2 ML IVP PRN (15:45)
[2017-05-30] MEDS: INFUVITE ADULT 10 ML in D5%-1/2NS-KCL 20 MEQ/L IV SOL 1,000 ML IV SCH (17:09)
[2017-05-30] MEDS: ATIVAN PO SCH ×2 (18:30→21:00)
[2017-05-30] MEDS: LOVENOX SUBCUT SCH (20:00)
[2017-05-31] MEDS: AMBIEN PO PRN ×2 (01:56→23:12)
[2017-05-31] MEDS: INFUVITE ADULT 10 ML in D5%-1/2NS-KCL 20 MEQ/L IV SOL 1,000 ML IV SCH ×2 (04:23→17:51)
[2017-05-31] MEDS ORDERED: INFUVITE ADULT IV ONE ×2 (04:26→17:48)
[2017-05-31 05:31] LABS: BASOPHILS % (AUTO) 0.2 % (0.0-3.0); EOSINOPHILS # (AUTO) 0.3 K/ul (0.0-0.7); EOSINOPHILS % (AUTO) 3.3 % (0.0-7.0); HEMATOCRIT 32.3 % (37.0-47.0); HEMOGLOBIN 10.5 g/dl (12.0-16.0); IMMATURE GRANULOCYTE % (AUTO) 0.6 % (0.0-5.0); LYMPHOCYTES # (AUTO) 1.4 K/uL (0.60-3.4); LYMPHOCYTES % (AUTO) 16.2 (10.0-50.0); MEAN CORPUSCULAR HEMOGLOBIN 32.4 pg (27.0-31.0); MEAN CORPUSCULAR HGB CONC 32.5 (31.8-35.4); MEAN CORPUSCULAR VOLUME 99.7 fl (81.0-99.0); MONOCYTES # (AUTO) 0.6 K/uL (0.4-2.0); MONOCYTES % (AUTO) 7.1 (0-10); NEUTROPHILS # (AUTO) 6.1 K/ul (2.0-6.9); NEUTROPHILS % (AUTO) 72.6; PLATELET COUNT 231 10^3/uL (140-440); RED BLOOD COUNT 3.24 10^6/ul (4.20-5.40); WHITE BLOOD COUNT 8.41 K/ul (4.6-10.2)
[2017-05-31 05:51] LABS: ALBUMIN 2.3 g/dL (3.4-5.0); ALBUMIN/GLOBULIN RATIO 0.66; ANION GAP 12.4; BILIRUBIN,TOTAL 0.51 mg/dL (0.00-1.20); BUN/CREATININE RATIO 15.15; CALCIUM 8.8 mg/dL (8.2-10.2); CREATININE 0.66 mg/dL (0.60-1.30); POTASSIUM 5.4 mmol/L (3.5-5.10); TOTAL PROTEIN 5.8 g/dL (5.8-8.1)
[2017-05-31] MEDS: DILAUDID 2 MG/ML SYRINGE IVP PRN ×3 (06:09→23:13)
[2017-05-31] MEDS: WELLBUTRIN SR PO SCH (08:47)
[2017-05-31] MEDS: ASPIRIN EC PO SCH (08:47)
[2017-05-31] MEDS: HYDROCHLOROTHIAZIDE PO SCH (08:47)
[2017-05-31] MEDS: COREG PO SCH ×2 (08:47→17:49)
[2017-05-31] MEDS: NORVASC PO SCH (08:47)
[2017-05-31] MEDS: ATIVAN PO SCH ×3 (08:50→20:01)
[2017-05-31] MEDS: INFUVITE ADULT 10 ML in DEXTROSE 5%-1/2NS IV SOLUTION 1,000 ML IV SCH (17:50)
[2017-05-31] MEDS: LOVENOX SUBCUT SCH (20:00)
[2017-06-01] MEDS: DILAUDID 2 MG/ML SYRINGE IVP PRN ×5 (04:52→23:34)
[2017-06-01 05:51] LABS: BASOPHILS % (AUTO) 0.5 % (0.0-3.0); EOSINOPHILS # (AUTO) 0.2 K/ul (0.0-0.7); EOSINOPHILS % (AUTO) 3.7 % (0.0-7.0); HEMATOCRIT 28.7 % (37.0-47.0); HEMOGLOBIN 9.6 g/dl (12.0-16.0); IMMATURE GRANULOCYTE % (AUTO) 0.3 % (0.0-5.0); LYMPHOCYTES # (AUTO) 1.2 K/uL (0.60-3.4); LYMPHOCYTES % (AUTO) 18.5 (10.0-50.0); MEAN CORPUSCULAR HEMOGLOBIN 31.9 pg (27.0-31.0); MEAN CORPUSCULAR HGB CONC 33.4 (31.8-35.4); MEAN CORPUSCULAR VOLUME 95.3 fl (81.0-99.0); MONOCYTES # (AUTO) 0.5 K/uL (0.4-2.0); MONOCYTES % (AUTO) 7.6 (0-10); NEUTROPHILS # (AUTO) 4.5 K/ul (2.0-6.9); NEUTROPHILS % (AUTO) 69.4; PLATELET COUNT 253 10^3/uL (140-440); RED BLOOD COUNT 3.01 10^6/ul (4.20-5.40); WHITE BLOOD COUNT 6.54 K/ul (4.6-10.2)
[2017-06-01 06:16] LABS: ALBUMIN 2.2 g/dL (3.4-5.0); ALBUMIN/GLOBULIN RATIO 0.67; ANION GAP 9.6; BILIRUBIN,TOTAL 0.38 mg/dL (0.00-1.20); BUN/CREATININE RATIO 13.43; CALCIUM 8.8 mg/dL (8.2-10.2); CREATININE 0.67 mg/dL (0.60-1.30); POTASSIUM 4.6 mmol/L (3.5-5.10); TOTAL PROTEIN 5.5 g/dL (5.8-8.1)
[2017-06-01] MEDS ORDERED: INFUVITE ADULT IV ONE ×3 (06:44→20:30)
[2017-06-01] MEDS: INFUVITE ADULT 10 ML in DEXTROSE 5%-1/2NS IV SOLUTION 1,000 ML IV SCH ×2 (06:49→20:32)
--- NOTE | 2017-06-01 09:56 | US ---
EXAM: Ultrasound abdomen complete. HISTORY: Anorexia. Abdominal pain COMPARISON: CT 04/15/2017 TECHNIQUE: Abdominal, real time with image documentation: Complete. FINDINGS: Liver: Normal. No intrahepatic biliary dilatation. Portal venous flow is normal direction. Gallbladder: Absent. Common bile duct: 0.7 cm. Pancreas: Visualized portions are unremarkable. Spleen: Normal, length 6.1 cm. Right kidney: 9.4 cm length. No hydronephrosis. Left kidney: 10.3 cm in length. Cyst measuring up to 2.4 cm diameter. No hydronephrosis. Aorta: Visualized portions are normal in caliber. IVC: Visualized portions are normal in caliber. IMPRESSION: No acute sonographic abnormality of the abdomen.
--- NOTE | 2017-06-01 10:56 | ECHO2D ---
Date of Exam: 05/30/17 Ordering Physician: OBDULIA PEREZ Reason for Echo: ARRHYTHMIA / SVT/FLUTTER/ SEVERE COPD Room #: SCU 1 M-Mode Normal Adult Results LV Dimensions Normal Adult Results AoV Opening excursions >1.6 >1.6 LVEDD-base- 3.5-5.8 3.8 Ao root dimensions 2.0-3.7 3.4 LVESD-base- 3.1-4.6 L. Atrium dimensions 1.9-3.8 4.0 Post. Wall thickness 0.8-1.1 1.0 IV septum (thickness) 0.7-1.2 1.1 Post. Wall excursion 0.72-1.3 NORMAL Septal motion NORMAL Systolic motion R. Ventricular cavity 1.5-2.0 3.0 LVEF 60% 64% Paradoxical septal wall motion NORMAL 2-D : MILD LEFT ATRIAL AND RIGHT VENTRICLE CAVITY ENLARGEMENT/ NO EFFUSION, NO THROMBUS, VALVES--NORMAL COLOR FLOW: MILD AORTIC REGURGITATION/ MITRAL REGURGITATION M-MODE: MV: NORMAL AV: NORMAL TV: NORMAL PV: CHAMBER SIZE: MILD LEFT ATRIAL AND RIGHT VENTRICLE CAVITY ENLARGEMENT WALL MOTION: NORMAL PERICARDIUM: NORMAL INTERPRETATION: 1. MILD LEFT ATRIAL AND RIGHT VENTRICLE CAVITY ENLARGEMENT 2. NORMAL LEFT VENTRICULAR CONTRACTILITY 3. NORMAL VALVES 4. MILD MITRAL REGURGITATION AND ATRIAL REGURGITATION MTDD
--- NOTE | 2017-06-01 11:27 | HOLTER ---
PATIENT INFORMATION AND COMMENTS Attending Physician: OBDULIA GALVAN Indications: ARRHYTHMIA __ Patient Medications: NORVASC, ASA, WELLBUTRIN, COREG, HCTZ, DILAUDID, AMBIEN __ Pre-procedure Summary: Protocol: Standard Heart Rate Started: 05/30/17 1120 Minimum: 59 BPM Weight: 72 LBS Ended: 05/31/17 1120 Maximum: 136 BPM Height: 65" Duration: 24 HRS Average: 77 BPM _ INTERPRETATIONS/OBSERVATIONS: 1. BASIC RHYTHM: SINUS, RATE 60 BPM TO 140 BPM, AVERAGE 77 BPM 2. PAC'S/ PVC'S INFREQUENT 3. FEW PAT/SVT NOTED, (FOUR TO FIFTEEN BEATS LONG) 4. NO ST-T WAVE CHANGES FROM BASELINE 5. ACTIVITY LOG NOT AVAILABLE MTDD
[2017-06-01] MEDS ORDERED: ATIVAN IVP STA (14:22)
[2017-06-01] MEDS: ATIVAN PO SCH ×2 (14:44→20:22)
[2017-06-01] MEDS: COREG PO SCH ×2 (16:37→17:29)
[2017-06-01] MEDS: HYDROCHLOROTHIAZIDE PO SCH (17:28)
[2017-06-01] MEDS: WELLBUTRIN SR PO SCH (17:29)
[2017-06-01] MEDS: NORVASC PO SCH (17:29)
[2017-06-01] MEDS: ASPIRIN EC PO SCH (17:29)
[2017-06-01 18:34] LABS: BILIRUBIN,URINE Negative (NEGATIVE); KETONES,URINE Negative (NEGATIVE); LEUKOCYTE ESTERASE ,URINE Negative (NEGATIVE); NITRITE,URINE Negative (NEGATIVE); PROTEIN,URINE Negative (NEGATIVE); URINE, BLOOD Trace-intact (NEGATIVE)
[2017-06-01 18:36] LABS: ADD URINE MICROSCOPIC YES
[2017-06-01] MEDS: LOVENOX SUBCUT SCH (20:21)
[2017-06-01] MEDS: AMBIEN PO PRN (21:51)
[2017-06-02] MEDS: DILAUDID 2 MG/ML SYRINGE IVP PRN ×4 (03:33→22:37)
[2017-06-02 05:23] LABS: BASOPHILS % (AUTO) 0.5 % (0.0-3.0); EOSINOPHILS # (AUTO) 0.2 K/ul (0.0-0.7); EOSINOPHILS % (AUTO) 3.8 % (0.0-7.0); HEMOGLOBIN 9.1 g/dl (12.0-16.0); IMMATURE GRANULOCYTE % (AUTO) 0.3 % (0.0-5.0); LYMPHOCYTES # (AUTO) 1.1 K/uL (0.60-3.4); LYMPHOCYTES % (AUTO) 19.4 (10.0-50.0); MEAN CORPUSCULAR HEMOGLOBIN 31.3 pg (27.0-31.0); MEAN CORPUSCULAR HGB CONC 32.5 (31.8-35.4); MEAN CORPUSCULAR VOLUME 96.2 fl (81.0-99.0); MONOCYTES # (AUTO) 0.6 K/uL (0.4-2.0); MONOCYTES % (AUTO) 9.6 (0-10); NEUTROPHILS # (AUTO) 3.9 K/ul (2.0-6.9); NEUTROPHILS % (AUTO) 66.4; PLATELET COUNT 261 10^3/uL (140-440); RED BLOOD COUNT 2.91 10^6/ul (4.20-5.40); WHITE BLOOD COUNT 5.83 K/ul (4.6-10.2)
[2017-06-02 05:51] LABS: ALBUMIN 2.1 g/dL (3.4-5.0); ALBUMIN/GLOBULIN RATIO 0.7; ANION GAP 8.8; BILIRUBIN,TOTAL 0.41 mg/dL (0.00-1.20); BUN/CREATININE RATIO 10.76; CALCIUM 8.4 mg/dL (8.2-10.2); CREATININE 0.65 mg/dL (0.60-1.30); POTASSIUM 3.8 mmol/L (3.5-5.10); TOTAL PROTEIN 5.1 g/dL (5.8-8.1)
[2017-06-02] MEDS ORDERED: INFUVITE ADULT IV ONE ×2 (07:31→20:01)
[2017-06-02] MEDS: INFUVITE ADULT 10 ML in DEXTROSE 5%-1/2NS IV SOLUTION 1,000 ML IV SCH ×2 (07:35→20:08)
--- NOTE | 2017-06-02 08:20 | DI ---
EXAM: Upper GI with small bowel follow-through. History: Anorexia and weight loss. Comparison: CT abdomen pelvis 04/15/2017 Technique: Patient was given oral barium and multiple spot films of the esophagus, stomach and duoden um were obtained in multiple projections. Small bowel follow-through was then performed. Findings: The course and caliber of the esophagus are within normal limits. Tertiary waves were seen within th e esophagus. No mucosal lesions within the esophagus. No hiatal hernia. Prominent gastric folds wi thin the stomach but no obvious ulceration. The duodenum is not dilated and no obvious ulceration is seen. The caliber of the small bowel is within normal limits. There is no small bowel obstruction. There was delayed transit of the contrast material through the colon. Contrast reached the colon after abo ut 8 hours. No extravasation of contrast. No small bowel wall thickening. Impression: Delayed transit of contrast through the small bowel. No small bowel obstruction. Examin ation was otherwise unremarkable.
[2017-06-02] MEDS: ASPIRIN EC PO SCH (09:06)
[2017-06-02] MEDS: COREG PO SCH ×2 (09:07→17:15)
[2017-06-02] MEDS: HYDROCHLOROTHIAZIDE PO SCH (09:07)
[2017-06-02] MEDS: ATIVAN PO SCH ×3 (09:07→20:08)
[2017-06-02] MEDS: NORVASC PO SCH (09:08)
[2017-06-02] MEDS: WELLBUTRIN SR PO SCH (09:08)
--- NOTE | 2017-06-02 10:54 | PN ---
DATE OF VISIT: 05/30/17 SUBJECTIVE: The patient was alert and responsive and somewhat better on 05/30/17. She still is not eating. She did complain of nausea and was given Zofran 4mg intervenously. At the time of my examination the nausea has already resolved after the Zofran was administered. On looking at the fluid balance the patient' s output is very small I don't know if they are measuring the urine all the time. She did have 100cc urine output and she positive for 2,700+cc. I don't know if this patient had been markedly behind fluids. Her potassium has now returned to normal at 4.2. Her initial potassium was 2.5. Chlorides were within normal as well as sodium. We will remove the oral potassium and reduce the IV potassium 20meq twice a day. The patient has moderate anemia after hydration. Anemia is probably mixed. The patient's TSH was 1.089 and her Free T3 is normal at 2.0pg/ml LUNGS: Clear to auscultation HEART: Normal sinus rhythm at the lower rate. This patient's heart rate has increased to 165 and sometimes 170. Sotalol was given at 80mg. The patient was seen by Dr. Gomez the sensory scientist because of the cardiac arrhythmias. The patient's WBC was 50 to 100, RBC 5-10. Leukocyte esterase 2+, urine bacteria 2+ . Preliminary culture gram negative rods. Urine collection was noted as random. This patient does not have any fever we will probably need to repeat urine, catheterize midstream and see if the results are the same. This patient has a pessary which would produce purulent material. CONDITION: About the same only slightly improved. MTDD
--- NOTE | 2017-06-02 11:10 | PN ---
DATE OF VISIT: 05/31/17 SUBJECTIVE: The patient today is alert with no respiratory distress. VITAL SIGNS: Temperature 98.2, pulse 94, blood pressure 170/79, respiratory rate 20 and oxygen saturation 96% on 2 liters nasal. LUNGS: Remain clear LABS: WBC remained normal, hgb and hct remained essentially the same as yesterday. Potassium now slightly above normal at 5.4. The IV potassium will limited to one bottle. The patient's EGFR is normal at 86 with a BUN of 10 and creatinine 0.66. Liver enzymes are normal. Her appetite is still very poor and the blood pressure is still uncontrolled. MTDD
[2017-06-02] MEDS: LOVENOX SUBCUT SCH (20:08)
[2017-06-02] MEDS ORDERED: MIRALAX PO SCH (22:00)
[2017-06-02] MEDS: MIRALAX PO SCH (22:37)
[2017-06-02] MEDS: AMBIEN PO PRN (23:35)
[2017-06-03] MEDS: DILAUDID 2 MG/ML SYRINGE IVP PRN ×2 (04:38→08:57)
[2017-06-03 05:08] LABS: BASOPHILS % (AUTO) 0.5 % (0.0-3.0); EOSINOPHILS # (AUTO) 0.2 K/ul (0.0-0.7); EOSINOPHILS % (AUTO) 2.5 % (0.0-7.0); HEMATOCRIT 28.3 % (37.0-47.0); HEMOGLOBIN 9.5 g/dl (12.0-16.0); IMMATURE GRANULOCYTE % (AUTO) 0.4 % (0.0-5.0); LYMPHOCYTES # (AUTO) 0.9 K/uL (0.60-3.4); LYMPHOCYTES % (AUTO) 11.8 (10.0-50.0); MEAN CORPUSCULAR HGB CONC 33.6 (31.8-35.4); MEAN CORPUSCULAR VOLUME 95.3 fl (81.0-99.0); MONOCYTES # (AUTO) 0.8 K/uL (0.4-2.0); MONOCYTES % (AUTO) 10.1 (0-10); NEUTROPHILS # (AUTO) 5.6 K/ul (2.0-6.9); NEUTROPHILS % (AUTO) 74.7; PLATELET COUNT 290 10^3/uL (140-440); RED BLOOD COUNT 2.97 10^6/ul (4.20-5.40); WHITE BLOOD COUNT 7.46 K/ul (4.6-10.2)
[2017-06-03 05:34] LABS: ALBUMIN 2.3 g/dL (3.4-5.0); ALBUMIN/GLOBULIN RATIO 0.7; ANION GAP 9.2; BILIRUBIN,TOTAL 0.45 mg/dL (0.00-1.20); BUN/CREATININE RATIO 10.44; CALCIUM 8.6 mg/dL (8.2-10.2); CREATININE 0.67 mg/dL (0.60-1.30); POTASSIUM 3.2 mmol/L (3.5-5.10); TOTAL PROTEIN 5.6 g/dL (5.8-8.1)
[2017-06-03 06:33] VITALS: TEMP 97.6
[2017-06-03] MEDS ORDERED: INFUVITE ADULT IV ONE (07:15)
[2017-06-03] MEDS: INFUVITE ADULT 10 ML in DEXTROSE 5%-1/2NS IV SOLUTION 1,000 ML IV SCH (08:57)
[2017-06-03] MEDS: COREG PO SCH (08:58)
[2017-06-03] MEDS: NORVASC PO SCH (08:58)
[2017-06-03] MEDS: WELLBUTRIN SR PO SCH (08:58)
[2017-06-03] MEDS: ASPIRIN EC PO SCH (08:58)
[2017-06-03] MEDS: HYDROCHLOROTHIAZIDE PO SCH (08:58)
[2017-06-03] MEDS: MIRALAX PO SCH (08:59)
[2017-06-03] MEDS: ATIVAN PO SCH (09:00)
--- NOTE | 2017-06-03 10:51 | HP ---
CHIEF COMPLAINT: Confusion, severe generalized weakness and anorexia last four days and recurrent fall four to five time in the last two days. SOURCE OF HISTORY: , reliability good HISTORY OF PRESENT ILLNESS: The patient about four to five days prior to presentation to the office and subsequent admission was noted to by the to be confused. She was standing and she did not know whether she had to move forwards or backwards. He has to ask for her to move. The patient also had fallen about 4-5 times since then. She also had not been eating in the last four days. The patient at the time of my examination at the office was generally weak more than I had ever had seen her before. She is still responsive. Because of the above confusion, increasing weakness and no food intake plus recurrent falls that the was patient was admitted to the hospital for the further examination and determination of the problem. This patient is still smoking. She has decreased the amount the cigarettes according to the . She had told me before on the last admission that she would stop smoking. PAST PERSONAL HISTORY: The patient known to be hypertension Hypercholesterolemia Cardiac arrhythmia Chronic tobacco use Chronic bronchitis Right hemicolectomy for colon carcinoma Previous colonoscopy Abdominal hysterectomy The patient had also been loosing weight and continued to smoke and was admitted to the hospital several weeks ago. The patient has gained weight during that admission and also continued at discharge. FAMILY HISTORY: Sister had Cancer of the reproductive organs Father had heart problems as well as stroke Mother had family cancer history SOCIAL HISTORY: The patient is and resides with her . She had one daughter who already had and has one grandson. MEDICATIONS: Aspirin 81mg daily Vitamin B12 1,000mcg twice a day Amlodipine 5mg daily Zolpidem 5mg tablet at bedtime Lorazepam 1.5mg three times a day Hydrocodone/Tylenol 10-325 three times a day as needed Wellbutrin 75mg twice a day Protonix 40mg daily Hydrochlorothiazide 12.5mg daily Vitamin B12 injectable ALLERGIES: Losartan REVIEW OF SYSTEMS: CONSTITUTIONAL: The patient alert, extremely weak. She is not able to walk on her own. She has no fever and no chills. CALL OUT OPERATOR: The patient was confused and was standing and didn't know whether to move forward or backwards. No seizure problems. Denies any headaches, weakness of other left of right upper or lower extremities. VISUAL: Denies any double vision or loss of vision. AUDITORY: hearing is decreased and denies any ringing. RESPIRATORY: The patient has cough but probably from smoking but no shortness of breath CARDIOVASCULAR: Denies any chest pain or chest tightness GASTROINTESTINAL: The patient is anorexic and had not had any food since about four days ago. GENITOURINARY: The patient denies any dysuria and is incontinent of urine at times. MUSCULOSKELETAL: The patient has pain in the back and has recent compression fracture of T12. ENDOCRINE: Negative. The patient is continuously losing weight but it maybe due to her smoking and loss of appetite rather than hyperthyroidism. INTEGUMENT: No rash or pleuritis HEMATOLOGIC: The patient has not had any history of prolonged bleeding or easy bruising. PSYCHIATRIC: Affect is OK. PHYSICAL EXAMINATION: GENERAL: We have an 82 year old female admitted to the hospital because of severe weakness, anorexia, confusion and fall with back pain. VITAL SIGNS: Temperature 96.2, pulse 112, blood pressure left 176/118 and right 168/110, respiratory rate 18 with oxygen saturation 96% at room air. She is 5'4 " 72 pounds and 15.56 ounces. BMI 12.5 GENERAL APPEARANCE: A woman that is ill with a sallow color. The eyeballs are sunken and wrinkled more than usual. HEAD: Unremarkable. FACE: Symmetrical and equal with no facial weakness. No significant tenderness to palpation in the frontal maxillary sinus areas. EYES: Pupil on the right is reactive and the left is completely opacified. No vision on the left. Conjunctivae not pale. Sclerae not icteric. MOUTH: No inflammation, no tumors. THROAT: No inflammation, tumors or exudate. NECK: No masses. No bruit. No tenderness. No rigidity. CHEST: Essentially symmetrical and equal with good expansion. The ribs are quite prominent LUNGS: Diminished breath sounds. No rales or wheezing. HEART: Audible and slightly tachycardiac and regular. No murmurs. ABDOMEN: Flat to scaphoid. No palpable masses. Scar from the previous colon surgery. No bruit. No ventral herniation noted. EXTERNAL GENITALIA: Not examined RECTAL: Not done. LOWER EXTREMITIES: Symmetrical and equal with no significant edema except the ankles. Pulse are not palpable. UPPER EXTREMITIES: Symmetrical and equal ASSESSMENT: 1. Severe confusion, etiology undetermined 2. Anorexia the last four to five days 3. Generalized weakness 4. Recurrent falls 5. Continued weight loss 6. Hypertension PROGNOSIS: Poor to guarded. MTDD
[2017-06-03 11:16] VITALS: BP 148/74
--- NOTE | 2017-06-03 12:52 | PN ---
DATE OF VISIT: 06/01/17 SUBJECTIVE: The patient today is alert and had complete abdominal ultrasound because of lack of appetite. This patient is also emaciated that an ultrasound probably does a better result then a CT scan. This patient had a colon carcinoma with right hemicolectomy with no obvious signs of recurrence previously. The abdominal ultrasound had no acute sonographic abnormalities to the abdomen. An upper GI series and small bowel also done. The esophagus is normal and gastric folds within the stomach but no obvious ulceration. Transit to the contrast is delayed through the small bowel and did reach the large bowel after 8 hours. No small bowel obstruction was noted, no leakage of the contrast medium. No small bowel thickening and no small bowel distention. LUNGS: Clear HEART: Normal sinus rhythm and no longer tachycardiac The patient's appetite is still poor. The patient is urged to eat more. IV will be continued until her oral intake improves. MTDD
--- NOTE | 2017-06-03 13:01 | PN ---
DATE OF VISIT: 06/02/17 SUBJECTIVE: The patient is alert and responsive. No dyspneic or tachypneic. Blood pressure at 152/69 and was much lower earlier at 98/60. This patient has generalized weakness and physical therapy is trying to do strengthening exercises twice a day. The patient had been complaining of pain in the midback and I did tell her that she has a compression fracture of the Thoracic spine T12 causing the pain. It will probably take several weeks for the pain to subside. LUNGS: Clear to auscultation. This patient never had any signs of bronchitis with smoking which she continues to smoke. I had urged her to stop smoking. She is always told me that she is now 81 year old and even before at 80 that she is already old meaning she go and anytime and she has no problems with that. I did advise her that while she is here that she get him healthy and rest and nobody knows when somebody is going to pass away. I do believe that if she stopped smoking that her appetite might improve. She was given Megace previously but the insurance company will not approve Megace. We had given a choice of Mirtazapine. Respiratory rate today is 18, pulse 89 and she is taking Sotalol 80mg twice a day. Not sure if the blood pressure 98/60 was recheck at 10:00 in the morning today. This patient's blood pressure has always been higher at 150's most of the times. Her lunch intake today is much less, 5%. This patient will be moved from acute care to transitional for the continued physical rehabilitation. The patient is no longer able to walk on her own. CAROLINA
--- NOTE | 2017-06-12 14:05 | CONS ---
DATE OF SERVICE: 05/30/17 CONSULT FOLLOWUP SUBJECTIVE: 81 year old white female hospitalized with weight loss, near syncopal episode and anorexia. The patient while she was on telemetry yesterday, I examined it and it looked like atrial flutter to fibrillation with rate of 150 per minute. The patient has been in sinus rhythm. She has been put on Betapace once a day. REVIEW OF SYSTEMS: CONSTITUTIONAL: No night sweats. No fatigue, malaise, lethargy. No fever or chills. HEENT: Eyes: No visual changes. No eye pain. No eye discharge. ENT: No runny nose. No epistaxis. No sinus pain. No sore throat. No odynophagia. No ear pain. No congestion. RESPIRATORY: No cough, no congestion. No hemoptysis. CARDIOVASCULAR: No angina symptoms. No CHF symptoms. No atypical chest pain for CAD. No palpitations. No shortness of breath. No PND. No orthopnea. GASTROINTESTINAL: No abdominal pain. No nausea or vomiting. No diarrhea or constipation. No hematemesis. No hematochezia. Appetite it not good. GENITOURINARY: No urgency. No frequency. No dysuria. No hematuria. No obstructive symptoms. No discharge. No pain. No significant abnormal bleeding. MUSCULOSKELETAL: No musculoskeletal pain. No joint swelling. No arthritis. NEUROLOGICAL: No headache. No neck pain. No syncope. No seizures. No dizziness. PSYCHIATRIC: Not anxious. No depression. No suicidal thoughts. No homicidal thoughts. SKIN: No rash. No lesions. No wounds. ENDOCRINE: No unexplained weight loss. No weight gain. HEMATOLOGIC/LYMPHATIC: No anemia. No purpura. No petechiae. No prolonged or excessive bleeding. No palpable lymph nodes. PHYSICAL EXAMINATION: GENERAL: The patient is oriented to time, place and person. VITAL SIGNS: Temperature 97.9, pulse 66, respiratory rate 16, blood pressure 158 /65 and pulse ox 89% on room air. HEENT: Head normocephalic, atraumatic. Eyes: Extraocular muscles are intact. Pupils are equal, round and reactive to light and accommodation. Ears: No lesions. Nose appeared normal. Throat: No exudate or erythema. NECK: Supple. No JVD, no carotid bruit. No lymphadenopathy or thyromegaly. LUNGS: Decreased breath sounds with mild wheeze. Percussion note normal. Chest symmetrical. HEART: S1, S2, no S3. No murmurs. No cyanosis or clubbing. No ascites. Pulses: Dorsalis pedis and posterior tibial pulses +1. ABDOMEN: Soft. Nontender. Bowel sounds active. No CVA tenderness. No mass felt. EXTREMITIES: No edema. Full range of motion of all extremities, equal. NEUROLOGIC: No focal deficit. Cranial nerves II through XII are grossly intact. No headache, no double vision or headache. SKIN: Not dry. Intact. Turgor - normal. LYMPHATIC: No palpable lymph nodes/no lymphedema. MUSCULOSKELETAL: Normal joints with no swelling. Muscle tone is normal. LABS/EKGS/RADIOLOGICAL FINDINGS: EKG shows since rhythm with no acute changes. Telemetry strips shows sinus rhythm with occasional PAC. Rhythm strips examined which showed atrial flutter/ fib with rate of 150 per minute. Hgb 10.5, hct 32, WBC 8,700 normal differential , creatinine 0.7, BUN 19, potassium 4.2. ASSESSMENT: 1. Cardiac arrhythmias in the form of atrial arrhythmias with likely atrial flutter/fib with rapid ventricular response subsided with occasional PAC maybe likely on the basis of chronic lung disease 2. Hypokalemia, seems to have resolved 3. Hypertension, under control could be uncontrolled again, we are going to add Coreg and that might help RECOMMENDATIONS: 1. Discontinue Sotalol 2. Put the patient on Coreg 6.25mg twice a day may increase the dose to 12.5mg twice a day. Maybe better with PAC's and atrial arrhythmias. 3. Strongly advised to quit smoking 4. Counseling for smoking done. 5. Advised to eat regularly 6. Echocardiogram was done this morning which showed normal LV contractility, enlarged RV cavity, borderline enlarged LA cavity with normal valves. No effusion. No thrombus. 7. Holter monitor 8. PVT. Thanks for referral, will follow. CAROLINA
--- NOTE | 2017-06-12 14:36 | CONS ---
DATE OF SERVICE: 05/31/17 CONSULT FOLLOWUP SUBJECTIVE: 81 year old white female hospitalized with anorexia, weight loss and chronic lung disease. The patient noted to have atrial flutter and with rate of 150 paroxysmal. After the first episode the patient was given Betapace and she broke into the sinus rhythm and now has PAC's. The patient has Holter monitor applied. REVIEW OF SYSTEMS: CONSTITUTIONAL: No night sweats. No fatigue, malaise, lethargy. No fever or chills. HEENT: Eyes: No visual changes. No eye pain. No eye discharge. ENT: No runny nose. No epistaxis. No sinus pain. No sore throat. No odynophagia. No ear pain. No congestion. RESPIRATORY: No cough, no congestion. No hemoptysis. CARDIOVASCULAR: No angina symptoms. No CHF symptoms. No atypical chest pain for CAD. No palpitations. No shortness of breath. GASTROINTESTINAL: No abdominal pain. No nausea or vomiting. No diarrhea or constipation. No hematemesis. No hematochezia. Appetite improving. GENITOURINARY: No urgency. No frequency. No dysuria. No hematuria. No obstructive symptoms. No discharge. No pain. No significant abnormal bleeding. MUSCULOSKELETAL: No musculoskeletal pain. No joint swelling. No arthritis. NEUROLOGICAL: No headache. No neck pain. No syncope. No seizures. No dizziness. PSYCHIATRIC: Not anxious. No depression. No suicidal thoughts. No homicidal thoughts. SKIN: No rash. No lesions. No wounds. ENDOCRINE: No unexplained weight loss. No weight gain. HEMATOLOGIC/LYMPHATIC: No anemia. No purpura. No petechiae. No prolonged or excessive bleeding. No palpable lymph nodes. PHYSICAL EXAMINATION: GENERAL: The patient is oriented to time, place and person. VITAL SIGNS: Temperature 98.6, pulse 88, respiratory rate 20, blood pressure 143 /70 and pulse ox 93%. HEENT: Head normocephalic, atraumatic. Eyes: Extraocular muscles are intact. Pupils are equal, round and reactive to light and accommodation. Ears: No lesions. Nose appeared normal. Throat: No exudate or erythema. NECK: Supple. No JVD, no carotid bruit. No lymphadenopathy or thyromegaly. LUNGS: Decreased breath sounds but clear to auscultation. Percussion note normal. Chest symmetrical. HEART: S1, S2, no S3. No murmurs. No cyanosis or clubbing. No ascites. Pulses: Dorsalis pedis and posterior tibial pulses +1 to +2 both sides. ABDOMEN: Soft. Nontender. Bowel sounds active. No CVA tenderness. No mass felt. EXTREMITIES: No edema. Full range of motion of all extremities, equal. NEUROLOGIC: No focal deficit. Cranial nerves II through XII are grossly intact. No headache, no double vision or headache. SKIN: Not dry. Intact. Turgor - normal. LYMPHATIC: No palpable lymph nodes/no lymphedema. MUSCULOSKELETAL: Normal joints with no swelling. Muscle tone is normal. LABS: Hgb 10.05, hct 32, WBC 8,400 normal differential, creatinine 0.4, BUN 10, potassium 5.4. ASSESSMENT: 1. Cardiac arrhythmias in the form of paroxysmal atrial fibrillation subsided after that there is no recurrence 2. Chronic lung disease with history of smoking 3. Counseling for smoking done and strongly advised to quit smoking. Her arrhythmias could be on the bases of chronic lung disease and cachexia. RECOMMENDATIONS: 1. The patient is going to be Coreg and the Coreg will be increased to 12.5 twice a day which may help her systolic blood pressure and cardiac arrhythmias especially atrial arrhythmias. 2. Strongly advised to eat regular meals and walk 3. The patient is a candidate for pulmonary rehab. We give pulmonary rehab consult 4. Will do PFT 5. Holter Monitor pending. CONDITION: Stable MTDD
--- NOTE | 2017-06-12 14:45 | CONS ---
DATE OF SERVICE: 06/01/17 CONSULT FOLLOWUP SUBJECTIVE: The patient is doing well. She does not have arrhythmias frequent. Holter showed infrequent PAC's and PVC and had few short runs 3-4 of them consisting from 5-15 beats of PAT or SVT. The patient is on Carvedilol 12.5mg twice a day. The patient has severe chronic lung disease of the bases of the the patient has atrial arrhythmias. We will do PFT today. REVIEW OF SYSTEMS: CONSTITUTIONAL: No night sweats. No fatigue, malaise, lethargy. No fever or chills. HEENT: Eyes: No visual changes. No eye pain. No eye discharge. ENT: No runny nose. No epistaxis. No sinus pain. No sore throat. No odynophagia. No ear pain. No congestion. RESPIRATORY: No cough, no congestion. No hemoptysis. CARDIOVASCULAR: No angina symptoms. No CHF symptoms. No atypical chest pain for CAD. No palpitations. No shortness of breath. GASTROINTESTINAL: No abdominal pain. No nausea or vomiting. No diarrhea or constipation. No hematemesis. No hematochezia. GENITOURINARY: No urgency. No frequency. No dysuria. No hematuria. No obstructive symptoms. No discharge. No pain. No significant abnormal bleeding. MUSCULOSKELETAL: No musculoskeletal pain. No joint swelling. No arthritis. NEUROLOGICAL: No headache. No neck pain. No syncope. No seizures. No dizziness. PSYCHIATRIC: Not anxious. No depression. No suicidal thoughts. No homicidal thoughts. SKIN: No rash. No lesions. No wounds. ENDOCRINE: No unexplained weight loss. No weight gain. HEMATOLOGIC/LYMPHATIC: No anemia. No purpura. No petechiae. No prolonged or excessive bleeding. No palpable lymph nodes. PHYSICAL EXAMINATION: HEENT: Head normocephalic, atraumatic. Eyes: Extraocular muscles are intact. Pupils are equal, round and reactive to light and accommodation. Ears: No lesions. Nose appeared normal. Throat: No exudate or erythema. NECK: Supple. No JVD, no carotid bruit. No lymphadenopathy or thyromegaly. LUNGS: Decreased breath sounds but clear to auscultation. Percussion note normal. Chest symmetrical. HEART: S1, S2, no S3. No murmurs. No cyanosis or clubbing. No ascites. Pulses: Dorsalis pedis and posterior tibial pulses +1 to +2 both sides. ABDOMEN: Soft. Nontender. Bowel sounds active. No CVA tenderness. No mass felt. EXTREMITIES: No edema. Full range of motion of all extremities, equal. NEUROLOGIC: No focal deficit. Cranial nerves II through XII are grossly intact. No headache, no double vision or headache. SKIN: Not dry. Intact. Turgor - normal. LYMPHATIC: No palpable lymph nodes/no lymphedema. MUSCULOSKELETAL: Normal joints with no swelling. Muscle tone is normal. OVER ALL CONDITION: Stable Discussed with attending physician and sign out of the case and no need for the patient to be on any permanent Kamran blood thinner or Warfarin. RECOMMENDATIONS: 1. Counseling for smoking done MTDD
--- NOTE | 2017-06-12 14:48 | CONS ---
The patient was seen four times. 05/29/17: Level 5 05/30/17: Intermediate 05/31/17: Intermediate 06/01/17: intermediate MTDD
--- NOTE | 2017-06-12 15:11 | CONS ---
DATE OF CONSULTATION: 05/29/17 REASON FOR CONSULTATION: Cardiac arrhythmias HISTORY OF PRESENT ILLNESS: 81 year old white female was seen by the primary doctor in the office because of fall. She denies of any blackout spell. Also has chronic weight loss over several months or couple of years, more than 20 pounds. The patient says that she fell on the head, her back side of the head and now complaining of pain in the lower back. The patient now has new compression deformity of T12, 20% loss of vertebral height. Abdominal CT is negative. CT scan of the head normal. Chest normal. CT of the cervical spine no fracture. The patient's telemetry is not quite clear but the rate is 80 per minute, could be sinus or could be atrial fibrillation. REVIEW OF SYSTEMS: CONSTITUTIONAL: No night sweats. Fatigue. No fever or chills. Weakness HEENT: Eyes: No visual changes. No eye pain. No eye discharge. ENT: No sinus drainage. No epistaxis. No sinus pain. No sore throat. No odynophagia. No ear pain. No congestion. RESPIRATORY: No cough, no congestion. No hemoptysis. No shortness of breath. CARDIOVASCULAR: No angina symptoms. No CHF symptoms. No atypical chest pain for CAD. No palpitations. No orthopnea. No PND. GASTROINTESTINAL: No abdominal pain. No nausea or vomiting. No diarrhea or constipation. No hematemesis. No hematochezia. Appetite is not good. GENITOURINARY: No urgency. No frequency. No dysuria. No hematuria. No obstructive symptoms. No discharge. No pain. No significant abnormal bleeding. MUSCULOSKELETAL: No musculoskeletal pain. No joint swelling. NEUROLOGICAL: No headache. No neck pain. No syncope. No seizures. No dizziness. PSYCHIATRIC: Not anxious. No depression. No suicidal thoughts. No homicidal thoughts. SKIN: No rash. No lesions. No wounds. ENDOCRINE: No unexplained weight loss. No weight gain. HEMATOLOGIC/LYMPHATIC: No anemia. No purpura. No petechiae. No prolonged or excessive bleeding. No palpable lymph nodes. MEDICATIONS: Aspirin Amlodipine Lorazepam Ambien [place] Wellbutrin Protonix Hydrochlorothiazide ALLERGIES: Losartan PAST MEDICAL HISTORY: Hypertension Insomnia Depression Reflux disease DJD spine PAST SURGICAL HISTORY: Right hemicolectomy with colon carcinoma Previous colonoscopy Abdominal hysterectomy SOCIAL/PERSONAL/FAMILY HISTORY: The patient is and resides with her . She had one daughter who already had and has one grandson. The family history is significant for cancer and heart problems. The patient is a smoker but no alcohol and no substance abuse. PHYSICAL EXAMINATION: GENERAL: The patient is oriented to time, place and person and looks frail. BMI 50 with body weight of 72 pounds. VITALS: Temperature 96, pulse 118, respiratory rate 16, blood pressure 176/118, pulse ox 96%. The patient's blood pressure has been taken two to three times after that. The last time it was taken was 133/81, pulse is now 80-90 per minute. HEENT: Head normocephalic, atraumatic. Eyes: Extraocular muscles are intact. Pupils are equal, round and reactive to light and accommodation. Ears: No lesions. Nose appeared normal. Throat: No exudate or erythema. NECK: Supple. No JVP, no carotid bruit. No lymphadenopathy or thyromegaly. LUNGS: Decreased breath sounds but clear to auscultation. Percussion note normal. Chest symmetrical. HEART: S1, S2, no S3. No murmurs. No cyanosis or clubbing. No ascites. Pulses: Dorsalis pedis and posterior tibial pulses +1 bilaterally. ABDOMEN: Soft. Nontender. Bowel sounds active. No CVA tenderness. No mass felt. EXTREMITIES: No edema. Full range of motion of all extremities, equal. NEUROLOGIC: No focal deficit. Cranial nerves II through XII are grossly intact. No headache, no double vision or headache. SKIN: Not dry. Intact. Turgor - normal. LYMPHATIC: No palpable lymph nodes/no lymphedema. MUSCULOSKELETAL: Normal joints with no swelling. Muscle tone is normal. LABS: hgb 12.2, hct 36, WBC 9,100 normal differential, creatinine 0.7, BUN 15, potassium 2.5, TSH normal. ASSESSMENT: 1. Cardiac arrhythmias which looks like sinus rhythm with PAC's, I will review the strips but the patient seems to be in stable rhythm. Could be sinus with PAC 's or atrial fibrillation I will have to review the strips in detail 2. Hypertension which seems to be controlled 3. Weight loss etiology unknown 4. Severe hypokalemia being treated with potassium supplements. RECOMMENDATIONS: 1. Will do echocardiogram to evaluate LV function, LA size, Valvular structures 2. Continue telemetry 3. Vitamin B12 level 4. Potassium supplements as given, Potassium liquid 20meq three times a day today and daily, Potassium supplements in the IV fluids as prescribed 5. Daily CBC and CMP CONDITION: Stable Will follow. Thanks for referral. CAROLINA
--- NOTE | 2017-06-17 09:51 | PN ---
The patient was seen on Consultation 05/29/17,05/30/17,05/31/17 and the patient is going to be seen on 06/01/17. [place]INA
--- NOTE | 2017-07-16 13:00 | DS ---
DATE OF DISCHARGE: 06/03/17 TO TRANSITIONAL CARE PATIENT IDENTIFICATION: 81-year-old female who was seen at the office initially because of severe back pain, not eating in the last four days and falling four to five times in the last two days, confusion or being spaced out. The mentioned that she didn't know whether to move forwards or backwards when she was standing at home. This patient still answers questions but she looks pale and ill in appearance. The patient's heart rate also is elevated while at the office. The patient was admitted 04/15/17 because of abdominal pain and felt to be secondary to peptic ulcer disease. She has an appointment to see a GI doctor after her discharge in that admission. The patient was admitted to Special Care Unit. While in the hospital she was given Dilaudid 1 mg intravenously q.4hr p.r.n. Lungs have diminished breath sounds with no rales or wheezing. Heart is audible and regular with tachycardia. Heartbeat did go up to 165. The patient was given Sotalol 80 mg twice a day and was seen by a recruiting operations consultant in consultation and had followed the patient with me with regard to that problem. Physical Therapy consultation also requested. The x-ray of the thoracic spine as well as lumbar showed a new compression fracture of T12. CT scan of the head because of confusion showed no acute intracranial findings. Chest x-ray no acute cardiopulmonary abnormalities. Severe anterior wedging of T12 was noted. Cervical spine x-ray was done because of the previous falls and no acute fracture of subluxation is noted. Abdominal ultrasound was done 06/01/17 because of abdominal pain the impression was no acute sonographic abnormalities of the abdomen. Upper GI series with small bowel followup showed no obstruction but there is delayed transit of the contrast in the small intestine. The contrast did get through the colon in 8 hours. Delayed transit may be secondary to motility problems or maybe even some vascular anomalies or problems. There was no signs of a mechanical obstruction. This patient had a right hemicolectomy for colon carcinoma. The patient was maintained on fluids plus electrolytes and multivitamins. The patient's meal intake was variable from refuse to 25, at times 50. Mostly the patient refuses to eat. The patient's cardiac rate has returned to normal and her blood pressure fluctuates slightly above normal to normal. The heart rate was always below 100 since after the 165. The patient at the time of discharge on 06/03/17 was alert and responsive, feeling some better. The patient was advised that she would be discharged from acute care and readmitted to transitional care for physical therapy and continued fluid replacement. Hopefully she would be able to gain weight and gain her appetite. The patient had not had any cigarettes since admission and the patient promised that she will not resume smoking. Vital signs at time of discharge on 06/03/17 showed a temperature 97.6, pulse 72 , BP 148/74, respiratory rate 18, no oxygen saturation done except earlier in the morning hours showing a 94 on room air. She was alert and responsive and follows verbal commands with movement of all extremities. This patient was given Lovenox prophylactically. FINAL DIAGNOSIS: 1. SEVERE PAIN MID BACK COMPRESSION FRACTURE T12 2. EXTREME FATIGUE, ETIOLOGY UNDETERMINED 3. PERSISTENT ANOREXIA, CAUSE UNDETERMINED 4. DELAYED CONTRAST MEDIA IN THE SMALL INTESTINE, REASON UNDETERMINED 5. HYPERTENSION 6. SUPRAVENTRICULAR TACHYCARDIA, CONTROLLED 7. MODERATE ANEMIA, MIXED ORIGIN 8. CHRONIC TOBACCO USE AND ABUSE, PERSISTENT UNTIL THIS ADMISSION 9. VAGINAL PROLAPSE TREATED WITH VAGINAL PESSARY 10. HISTORY OF ABDOMINAL PAIN, PROBABLY PEPTIC ULCER DISEASE AND MAYBE ALSO ABDOMINAL ANGINA PROGNOSIS: Poor. MTDD
== END 2017-06-03 14:55 | disposition swing bed (61) | DRG 552 ==
LOC: SCU 13:20
PROVIDERS: ADMIT General Practice; ATTEND General Practice
DX: S22.080A Wedge compression fracture of T11-T12 vertebra, initial encounter for closed fracture (principal); K55.1 Chronic vascular disorders of intestine; I48.92 Unspecified atrial flutter; R64 Cachexia; R63.0 Anorexia; R29.6 Repeated falls; R00.0 Tachycardia, unspecified; R53.83 Other fatigue; K92.89 Other specified diseases of the digestive system; I10 Essential (primary) hypertension; D64.9 Anemia, unspecified; K27.7 Chronic peptic ulcer, site unspecified, without hemorrhage or perforation; E87.6 Hypokalemia; R55 Syncope and collapse; R11.0 Nausea; W19.XXXA Unspecified fall, initial encounter; F17.200 Nicotine dependence, unspecified, uncomplicated; Z85.038 Personal history of other malignant neoplasm of large intestine; Z90.49 Acquired absence of other specified parts of digestive tract; Z79.899 Other long term (current) drug therapy
CPT/HCPCS: 36415; 80053; 81001; 82550; 82607; 84145; 84443; 84481; 84484; 85025; 87086; 87186; 93005; 93010; 93227; 99223; 99232

== ENCOUNTER 2017-06-03 15:22 | Inpatient (IN) ==
[2017-06-03] MEDS ORDERED: DILAUDID 1 MG/ML SYRINGE IVP PRN (16:31)
[2017-06-03 16:39] VITALS: BMI 12.3
[2017-06-03] MEDS: WELLBUTRIN PO SCH ×2 (17:13→20:30)
[2017-06-03] MEDS: INFUVITE ADULT 10 ML in DEXTROSE 5%-NS IV SOLUTION 1,000 ML IV SCH ×2 (17:13→21:00)
[2017-06-03] MEDS ORDERED: DILAUDID 2 MG/ML SYRINGE ONE (18:18)
[2017-06-03] MEDS: COREG PO SCH (18:23)
[2017-06-03] MEDS: LOVENOX SUBCUT SCH (20:29)
[2017-06-03] MEDS: ATIVAN PO SCH (20:29)
[2017-06-03] MEDS: AMBIEN PO SCH (20:29)
[2017-06-03] MEDS ORDERED: INFUVITE ADULT IV ONE (20:55)
[2017-06-03] MEDS ORDERED: LOVENOX SUBCUT SCH (21:00)
[2017-06-03] MEDS ORDERED: NON-FORMULARY MEDICATION (Bupropion Hcl 75 MG) PO SCH (21:00)
[2017-06-04] MEDS ORDERED: DILAUDID 2 MG/ML SYRINGE ONE ×4 (01:03→19:59)
[2017-06-04 05:13] LABS: BASOPHILS % (AUTO) 0.5 % (0.0-3.0); EOSINOPHILS # (AUTO) 0.3 K/ul (0.0-0.7); EOSINOPHILS % (AUTO) 3.4 % (0.0-7.0); HEMATOCRIT 27.5 % (37.0-47.0); HEMOGLOBIN 9.3 g/dl (12.0-16.0); IMMATURE GRANULOCYTE % (AUTO) 0.4 % (0.0-5.0); LYMPHOCYTES # (AUTO) 1.2 K/uL (0.60-3.4); MEAN CORPUSCULAR HEMOGLOBIN 32.3 pg (27.0-31.0); MEAN CORPUSCULAR HGB CONC 33.8 (31.8-35.4); MEAN CORPUSCULAR VOLUME 95.5 fl (81.0-99.0); MONOCYTES # (AUTO) 0.8 K/uL (0.4-2.0); MONOCYTES % (AUTO) 10.4 (0-10); NEUTROPHILS # (AUTO) 5.1 K/ul (2.0-6.9); NEUTROPHILS % (AUTO) 69.3; PLATELET COUNT 302 10^3/uL (140-440); RED BLOOD COUNT 2.88 10^6/ul (4.20-5.40)
[2017-06-04 05:35] LABS: ALBUMIN 2.2 g/dL (3.4-5.0); ALBUMIN/GLOBULIN RATIO 0.65; ANION GAP 11.9; BILIRUBIN,TOTAL 0.4 mg/dL (0.00-1.20); BUN/CREATININE RATIO 10.6; CALCIUM 8.6 mg/dL (8.2-10.2); CREATININE 0.66 mg/dL (0.60-1.30); POTASSIUM 2.9 mmol/L (3.5-5.10); TOTAL PROTEIN 5.6 g/dL (5.8-8.1)
[2017-06-04] MEDS ORDERED: PROTONIX PO SCH (06:30)
[2017-06-04] MEDS ORDERED: NON-FORMULARY MEDICATION (Hydrochlorothiazide [Hydrochlorothiazide] 12.5 MG) PO SCH ×22 (09:00)
[2017-06-04] MEDS ORDERED: NON-FORMULARY MEDICATION (Amlodipine Besylate [Amlodipine Besylate] 5 MG) PO SCH (09:00)
[2017-06-04] MEDS: ASPIRIN EC PO SCH (09:17)
[2017-06-04] MEDS: COREG PO SCH ×2 (09:17→17:15)
[2017-06-04] MEDS: NORVASC PO SCH (09:17)
[2017-06-04] MEDS: HYDROCHLOROTHIAZIDE PO SCH (09:17)
[2017-06-04] MEDS: WELLBUTRIN PO SCH ×2 (09:17→20:50)
[2017-06-04] MEDS: MIRALAX PO SCH (09:18)
[2017-06-04] MEDS: ATIVAN PO SCH ×3 (09:18→20:50)
[2017-06-04] MEDS ORDERED: INFUVITE ADULT IV ONE (09:20)
[2017-06-04] MEDS: INFUVITE ADULT 10 ML in DEXTROSE 5%-NS IV SOLUTION 1,000 ML IV SCH (09:23)
--- NOTE | 2017-06-04 15:43 | RS.PTINEVL ---
Subjective - Patient information Date of Evaluation: 06/04/17 Date of Arrival on Unit: 06/03/17 Admitted From:: In-House Transfer (swing bed) Usual Living Arrangement: With Spouse Home Environment: Stairs (few), Rail Medical History: Hypertension, COPD, Cancer (colon cancer) Medical History Comments:: irregular heartbeat LATEX ALLERGY?: No Surgical History: Hysterectomy Surgical History Comments:: colon resection Subjective Information/ Patient Comments:: pt admitted to swing bed s/p falls at home, new T12 vertebral body compression fx . pt states she is hurting more today and did not want to get out of bed. Encouraged pt and advised of benefits of therapy and she agreed to try to walk. - Level of function Prior to this admission, the patient could do the following:: Independent Selfcare, Independent ADL's, Independent Ambulation Current Level of Function: Partially Dependent Current Equipment Used at Home: none Pain Assessement - Location Back Description: Sharp Intensity: 8 Radiation Location: in thoracic spine Pain Behavior: Guarding, Irritability, Facial Grimacing Pain Aggravating Factors: Exercise/Activity, Sitting, Walking Pain Alleviating Factors: Medication Effects of Pain: limits mobility Interventions - Objective Patient Orientation: Person, Place Current Interventions: IV's, Oxygen, Telemetry Observation: pt skin appears fragile Range of Motion - ROM Right Upper Extremity AROM: WFL's Left Upper Extremity AROM: WFL's Right Lower Extremity AROM: WFL's Left Lower Extremity AROM: WFL's Muscle Strength - Muscle Strength Right Upper Extremity Strength: Mild Weakness (RUE shld flex 3+/5, elbow flex/ ext 4-/5) Left Upper Extremity Strength: Mild Weakness (LUE shld flex 3+/5, elbow flex/ ext 4-/5) Right Lower Extremity Strength: Mild Weakness (hip flex 3+/5, knee flex/ext 4-/5 , ankle DF/PF 4-/5) Left Lower Extremity Strength: Mild Weakness (hip flex 3+/5, knee flex/ext 4-/5 , ankle DF/PF 4-/5) Sensation - Sensation Right Upper Extremity Sensation: Intact/Normal Left Upper Extremity Sensation: Intact/Normal Right Lower Extremity Sensation: Intact/Normal Left Lower Extremity Sensation: Intact/Normal Palpation Palpation Findings: Tenderness Comments:: thoracic paraspinal muscles. Balance - Sitting Balance and Reactions Static Sitting Balance: Fair Dynamic Sitting Balance: Fair Sitting Equilibrium Reactions: Delayed Left, Delayed Right Sitting Protective Reactions: Delayed Left, Delayed Right - Standing Balance and Reactions Static Standing Balance: Poor Dynamic Standing Balance: Poor Standing Equilibrium Reactions: Delayed Left, Delayed Right Standing Protective Reactions: Delayed Left, Delayed Right - Comments Balance Assessment Comments: pt unable to tolerate tinetti due to back pain and decreased endurance. Functional Mobility - Bed Mobility Rolling R/L: Min Assist Scooting: Min Assist Supine to Sit: Min Assist Sit to Supine: Min Assist - Transfers Sit to Stand: Min Assist Stand to Sit: Min Assist Comments:: pt requires verbal cues for rolling sup to/ from sidelyning to prevet twisting and increased back pain. - Safety Awareness Safety Awareness: Fair Ambulation - Ambulation Assistive Device Used: Rolling Walker Distance: 50ft Assistance needed with Ambulation: CGA Gait Deviations: Forward posture, Deviates from path Ambulation Comments: pt amb with rwx with CGA to min x 1 + 1 with IV pole. pt requires cues for posture and placement of rwx. pt does not listen to all recommendation Factors Affecting Ambulation: Decreased Balance, Pain, Weakness, Dizziness, Decreased Safety Treatment time - Time with patient Total treatment time: 26 Patient Education - Education Patient Education: Home Safety, Activity Modification, Education of Plan of Care Teaching Recipient: Patient Teaching Methods: Discussion, Demonstration Assessment - Assessment Problem List:: Decreased level of function, Requires training/education, Decreased safety/Risk of falls, Weakness, Pain limits previous level of function , Cognitive status limits abilities Rehab Potential: Fair Further Therapy Indicated?: Yes Short Term Goals GOAL #1: pt transfer sup to/from sit to/from stand SBA Goal to be met by: 06/07/17 GOAL #2: pt amb with AAD 100ft with CGA with no loss of balance Goal to be met by: 06/07/17 GOAL #3: pt demonstrate independence positioning in bed for comfort/pressure relief Goal to be met by: 06/07/17 Senior Care Goals GOAL #1: pt tranfer independently sup to/from sit to/from stand Goal to be met by: 06/11/17 GOAL #2: pt amb functional distances with AAD independently with no loss of balance Goal to be met by: 06/11/17 GOAL #3: pt with improved strength BLE 4 to 4+/5 and indepenent with HEP Goal to be met by: 06/11/17 Plan Plan of Care: Therapeutic EX, Therapeutic Activity, Self-Care/Home Management Frequency of Treatment: 1-2 X day, as tolerated Duration of Treatment: 1 Week Anticipated Discharge Destination: Home
--- NOTE | 2017-06-04 16:59 | RS.OTINEVL ---
Subjective - Patient information Date of Evaluation: 06/04/17 Date of Arrival on Unit: 06/03/17 Admitted From:: In-House Transfer (swing bed) Usual Living Arrangement: With Spouse Living Arrangement Comments: Pt lives at home with her . Home Environment: Stairs (few), Rail Medical History: Hypertension, COPD, Cancer (colon cancer) Medical History Comments:: irregular heartbeat LATEX ALLERGY?: No Surgical History: Hysterectomy Surgical History Comments:: colon resection Subjective Information/ Patient Comments:: "I am cold. Can we do this later?" - Level of function Prior to this admission, the patient could do the following:: Independent Selfcare, Independent ADL's, Independent Ambulation Abilities prior to this admission: Pt was independent with ADLS at home. Pt did not use assistive device. Current Level of Function: Partially Dependent Current Equipment Used at Home: none Pain Assessment - Pain Pain Score: 8 Side: bilateral Pain Location Body Site: Back Pain Aggravating Factors: Changing Position, Standing, Walking Pain Alleviating Factors: Medication Interventions - Objective Patient Orientation: Person, Place, Situation Current Interventions: IV's Observation: Pt is very thin and spinal vertebra are noticeable. Pt walks with walker too far from her and she has to be cued to keep it near her. Pt is rolling the walker in an uncontrolled manner intermittently. Interventions - ROM Right Upper Extremity AROM: Slight limitation Left Upper Extremity AROM: Slight limitation - Strength Right Upper Extremity Strength: Mild Weakness Left Upper Extremity Strength: Mild Weakness - Sensation Right Upper Extremity Sensation: Intact/Normal Left Upper Extremity Sensation: Intact/Normal Balance - Sitting Balance Static Sitting Balance: Good Dynamic Sitting Balance: Good - Standing Balance Static Standing Balance: Fair Dynamic Standing Balance: Fair - Comments Balance Assessment Comments: Pt has impaired balance. ADL Skills - Self Feeding Self Feeding: Independent - Grooming Grooming: CGA - Bathing Bathing UE: Min Assist Bathing LE: Min Assist - Dressing Dressing UE: Min Assist Dressing LE: Min Assist - Toilet Management Toileting Management: CGA Functional Mobility - Bed Mobility Rolling R/L: Min Assist Scooting: Min Assist Supine to Sit: Mod Assist Sit to Supine: Min Assist - Transfers Sit to Stand: Min Assist Stand to Sit: CGA Stand Pivot Transfers: CGA Additional Treatment Performed - Additional units charged ADL: 15 - Time with patient Total treatment time: 32 Activities Patient Interests:: Watching Television Patient Education Patient Education: Education of diagnosis, Home Exercise Program Teaching Recipient: Patient Teaching Methods: Discussion Assessment Problem List:: Decreased level of function, Requires training/education, Weakness, Pain limits previous level of function Rehab Potential: Good Further Therapy Indicated?: Yes Short Term Goals - Goals GOAL 1: Pt to tolerate supine to sit CGA. Goal to be met by: 06/11/17 GOAL 2: Pt to tolerate 15 minutes of standing activity. Goal to be met by: 06/11/17 Progress towards goal: Progressing GOAL 3: Pt increase BUE strength to 4/5. Goal to be met by: 06/11/17 Retirement Goals GOAL 1: Pt to tolerate supine to sit SBA. Goal to be met by: 06/18/17 GOAL 2: Pt to tolerate 20 minutes of standing activity. Goal to be met by: 06/18/17 GOAL 3: Pt increase BUE strength to 4+/5. Goal to be met by: 06/18/17 Plan Plan of Care: Therapeutic EX, Neuromuscular Re-Educ, Therapeutic Activity, Self- Care/Home Management Frequency of Treatment: 1-2 X day, as tolerated Duration of Treatment: 2 Weeks Anticipated Discharge Destination: Home
[2017-06-04] MEDS: INFUVITE ADULT 10 ML in D5%-NS-KCL 20 MEQ/L IV SOL 1,000 ML IV SCH (17:15)
[2017-06-04] MEDS: LOVENOX SUBCUT SCH (20:50)
[2017-06-04] MEDS: AMBIEN PO SCH (20:50)
[2017-06-05] MEDS ORDERED: DILAUDID 2 MG/ML SYRINGE ONE ×2 (02:41→11:37)
[2017-06-05] MEDS ORDERED: INFUVITE ADULT IV ONE ×2 (02:48→20:23)
[2017-06-05] MEDS: INFUVITE ADULT 10 ML in D5%-NS-KCL 20 MEQ/L IV SOL 1,000 ML IV SCH (03:42)
[2017-06-05] MEDS: MIRALAX PO SCH (09:07)
[2017-06-05] MEDS: HYDROCHLOROTHIAZIDE PO SCH (09:07)
[2017-06-05] MEDS: ATIVAN PO SCH ×3 (09:07→21:32)
[2017-06-05] MEDS: WELLBUTRIN PO SCH ×2 (09:07→21:31)
[2017-06-05] MEDS: COREG PO SCH ×2 (09:07→18:10)
[2017-06-05] MEDS: NORVASC PO SCH (09:08)
[2017-06-05] MEDS: ASPIRIN EC PO SCH (09:08)
[2017-06-05] MEDS: NORCO 10-325 PO SCH ×2 (15:11→18:10)
[2017-06-05] MEDS: LIDODERM PATCH 5% TP SCH (15:22)
[2017-06-05] MEDS: LOVENOX SUBCUT SCH (21:32)
[2017-06-05] MEDS: AMBIEN PO SCH (21:32)
[2017-06-06] MEDS: INFUVITE ADULT 10 ML in D5%-NS-KCL 20 MEQ/L IV SOL 1,000 ML IV SCH ×2 (00:27→13:40)
[2017-06-06] MEDS: NORCO 10-325 PO SCH ×5 (00:34→23:34)
[2017-06-06] MEDS: ASPIRIN EC PO SCH (08:53)
[2017-06-06] MEDS: COREG PO SCH ×2 (08:53→17:23)
[2017-06-06] MEDS: HYDROCHLOROTHIAZIDE PO SCH (09:48)
[2017-06-06] MEDS: ATIVAN PO SCH ×3 (09:48→21:41)
[2017-06-06] MEDS: NORVASC PO SCH (09:48)
[2017-06-06] MEDS: WELLBUTRIN PO SCH ×2 (09:48→21:41)
[2017-06-06] MEDS: LIDODERM PATCH 5% TP SCH (09:49)
[2017-06-06] MEDS: MIRALAX PO SCH (09:49)
[2017-06-06] MEDS ORDERED: INFUVITE ADULT IV ONE (13:34)
[2017-06-06] MEDS: LOVENOX SUBCUT SCH (21:41)
[2017-06-06] MEDS: AMBIEN PO SCH (21:41)
[2017-06-07] MEDS ORDERED: INFUVITE ADULT IV ONE ×2 (01:50→14:40)
[2017-06-07] MEDS: INFUVITE ADULT 10 ML in D5%-NS-KCL 20 MEQ/L IV SOL 1,000 ML IV SCH ×2 (01:54→14:45)
[2017-06-07] MEDS: NORCO 10-325 PO SCH ×4 (05:38→23:53)
[2017-06-07 06:10] LABS: BASOPHILS % (AUTO) 0.2 % (0.0-3.0); EOSINOPHILS # (AUTO) 0.2 K/ul (0.0-0.7); HEMATOCRIT 28.2 % (37.0-47.0); HEMOGLOBIN 9.6 g/dl (12.0-16.0); IMMATURE GRANULOCYTE % (AUTO) 0.5 % (0.0-5.0); LYMPHOCYTES # (AUTO) 1.2 K/uL (0.60-3.4); LYMPHOCYTES % (AUTO) 13.1 (10.0-50.0); MEAN CORPUSCULAR HEMOGLOBIN 32.4 pg (27.0-31.0); MEAN CORPUSCULAR VOLUME 95.3 fl (81.0-99.0); MONOCYTES # (AUTO) 0.5 K/uL (0.4-2.0); MONOCYTES % (AUTO) 5.4 (0-10); NEUTROPHILS # (AUTO) 7.4 K/ul (2.0-6.9); NEUTROPHILS % (AUTO) 78.8; PLATELET COUNT 364 10^3/uL (140-440); RED BLOOD COUNT 2.96 10^6/ul (4.20-5.40); WHITE BLOOD COUNT 9.39 K/ul (4.6-10.2)
[2017-06-07 06:31] LABS: ALBUMIN 2.2 g/dL (3.4-5.0); ALBUMIN/GLOBULIN RATIO 0.54; ANION GAP 11.8; BILIRUBIN,TOTAL 0.5 mg/dL (0.00-1.20); BUN/CREATININE RATIO 13.63; CREATININE 0.66 mg/dL (0.60-1.30); POTASSIUM 3.8 mmol/L (3.5-5.10); TOTAL PROTEIN 6.3 g/dL (5.8-8.1)
[2017-06-07] MEDS: ASPIRIN EC PO SCH (08:34)
[2017-06-07] MEDS: HYDROCHLOROTHIAZIDE PO SCH (08:34)
[2017-06-07] MEDS: WELLBUTRIN PO SCH ×2 (08:35→20:59)
[2017-06-07] MEDS: MIRALAX PO SCH (08:35)
[2017-06-07] MEDS: ATIVAN PO SCH ×3 (08:35→21:00)
[2017-06-07] MEDS: NORVASC PO SCH (08:35)
[2017-06-07] MEDS: COREG PO SCH ×2 (08:35→18:01)
[2017-06-07] MEDS: LIDODERM PATCH 5% TP SCH (08:36)
[2017-06-07] MEDS: AMBIEN PO SCH (20:59)
[2017-06-07] MEDS: LOVENOX SUBCUT SCH (21:00)
[2017-06-08] MEDS ORDERED: INFUVITE ADULT IV ONE (01:59)
[2017-06-08] MEDS: INFUVITE ADULT 10 ML in D5%-NS-KCL 20 MEQ/L IV SOL 1,000 ML IV SCH ×3 (02:29→18:45)
[2017-06-08] MEDS: NORCO 10-325 PO SCH ×3 (06:16→17:36)
[2017-06-08] MEDS: LIDODERM PATCH 5% TP SCH (10:08)
[2017-06-08] MEDS: MIRALAX PO SCH (10:12)
[2017-06-08] MEDS: ASPIRIN EC PO SCH (10:12)
[2017-06-08] MEDS: ATIVAN PO SCH ×3 (10:13→21:00)
[2017-06-08] MEDS: COREG PO SCH ×2 (10:13→17:08)
[2017-06-08] MEDS: HYDROCHLOROTHIAZIDE PO SCH (10:13)
[2017-06-08] MEDS: NORVASC PO SCH (10:14)
[2017-06-08] MEDS: WELLBUTRIN PO SCH ×2 (10:14→21:00)
[2017-06-08] MEDS: PYRIDIUM PO SCH ×2 (15:05→21:00)
[2017-06-08 16:16] LABS: BILIRUBIN,URINE Negative (NEGATIVE); KETONES,URINE Negative (NEGATIVE); LEUKOCYTE ESTERASE ,URINE 3+ (NEGATIVE); NITRITE,URINE Negative (NEGATIVE); PROTEIN,URINE 1+ (NEGATIVE); URINE, BLOOD 1+ (NEGATIVE)
[2017-06-08 16:25] LABS: ADD URINE MICROSCOPIC YES
[2017-06-08 16:26] LABS: BACTERIA,URINE 1+ (NOT PRESENT)
[2017-06-08] MEDS: AMBIEN PO SCH (21:00)
[2017-06-08] MEDS: LOVENOX SUBCUT SCH (21:00)
[2017-06-09] MEDS: NORCO 10-325 PO SCH ×5 (00:23→23:52)
[2017-06-09] MEDS ORDERED: INFUVITE ADULT IV ONE ×2 (04:59→16:51)
[2017-06-09] MEDS: INFUVITE ADULT 10 ML in D5%-NS-KCL 20 MEQ/L IV SOL 1,000 ML IV SCH ×2 (05:04→17:30)
[2017-06-09] MEDS: COREG PO SCH ×2 (07:52→17:27)
[2017-06-09] MEDS: ASPIRIN EC PO SCH (07:52)
[2017-06-09] MEDS: ATIVAN PO SCH ×3 (09:12→21:02)
[2017-06-09] MEDS: PYRIDIUM PO SCH ×3 (09:12→21:00)
[2017-06-09] MEDS: WELLBUTRIN PO SCH ×2 (09:12→21:00)
[2017-06-09] MEDS: HYDROCHLOROTHIAZIDE PO SCH (09:15)
[2017-06-09] MEDS: NORVASC PO SCH (09:16)
[2017-06-09] MEDS: MIRALAX PO SCH (09:16)
[2017-06-09] MEDS: LIDODERM PATCH 5% TP SCH (09:17)
[2017-06-09] MEDS ORDERED: DECADRON 4 MG/ML SDV IM STA (17:51)
[2017-06-09] MEDS: LOVENOX SUBCUT SCH (21:01)
[2017-06-09] MEDS: AMBIEN PO SCH (21:01)
[2017-06-10 05:29] LABS: BASOPHILS % (AUTO) 0.2 % (0.0-3.0); HEMATOCRIT 29.5 % (37.0-47.0); HEMOGLOBIN 9.7 g/dl (12.0-16.0); IMMATURE GRANULOCYTE % (AUTO) 0.4 % (0.0-5.0); LYMPHOCYTES # (AUTO) 0.7 K/uL (0.60-3.4); LYMPHOCYTES % (AUTO) 12.2 (10.0-50.0); MEAN CORPUSCULAR HEMOGLOBIN 31.1 pg (27.0-31.0); MEAN CORPUSCULAR HGB CONC 32.9 (31.8-35.4); MEAN CORPUSCULAR VOLUME 94.6 fl (81.0-99.0); MONOCYTES # (AUTO) 0.1 K/uL (0.4-2.0); MONOCYTES % (AUTO) 1.1 (0-10); NEUTROPHILS # (AUTO) 4.9 K/ul (2.0-6.9); NEUTROPHILS % (AUTO) 86.1; PLATELET COUNT 461 10^3/uL (140-440); RED BLOOD COUNT 3.12 10^6/ul (4.20-5.40); WHITE BLOOD COUNT 5.64 K/ul (4.6-10.2)
[2017-06-10 05:52] LABS: ALBUMIN 2.4 g/dL (3.4-5.0); ALBUMIN/GLOBULIN RATIO 0.6; ANION GAP 13.6; BILIRUBIN,TOTAL 0.29 mg/dL (0.00-1.20); BUN/CREATININE RATIO 18.07; CALCIUM 9.3 mg/dL (8.2-10.2); CREATININE 0.83 mg/dL (0.60-1.30); POTASSIUM 4.6 mmol/L (3.5-5.10); TOTAL PROTEIN 6.4 g/dL (5.8-8.1)
[2017-06-10] MEDS: NORCO 10-325 PO SCH ×2 (05:54→12:14)
[2017-06-10 06:14] VITALS: BP 153/91; TEMP 97
[2017-06-10] MEDS: PYRIDIUM PO SCH (09:00)
[2017-06-10] MEDS: HYDROCHLOROTHIAZIDE PO SCH (09:01)
[2017-06-10] MEDS: ASPIRIN EC PO SCH (09:01)
[2017-06-10] MEDS: NORVASC PO SCH (09:01)
[2017-06-10] MEDS: COREG PO SCH (09:01)
[2017-06-10] MEDS: WELLBUTRIN PO SCH (09:01)
[2017-06-10] MEDS: ATIVAN PO SCH (09:01)
[2017-06-10] MEDS: LIDODERM PATCH 5% TP SCH (09:02)
[2017-06-10] MEDS: MIRALAX PO SCH (09:02)
--- NOTE | 2017-07-16 14:03 | DS ---
DATE OF SERVICE: 06/10/17 (DISCHARGE FROM TRANSITIONAL CARE) PATIENT IDENTIFICATION: The patient did undergo strenghtening exercises plus occupational therapy. The patient was gradually improving very slow. Her appetite had remained very poor. She would sometimes eat half of the meal; most of the time it was 25%. Her fluid oral intake also is not adequate. The patient, on the day of discharge was felt to have improved. Seating balance was described as good as well as standing and dressing was only when she was sitting. She was able to toilet independently although she needed help for ambulation. She was able to sit from supine, from bed and move in bed as well as rolling left to right. The patient remained afebrile throughout the hospital stay and heart rate was close to normal range only at times the heart rate did go up to 104. Vital signs on 06/10/17 showed a temperature of 97, a pulse of 105, blood pressure 153/91, respiratory rate 18, oxygen saturation 93 on room air. The patient on discharge was given a Diclofenac gel to be applied to the knees, Hydrocodone 10/325 to be taken four times a day as needed, Lidoderm patch 5% to be used on the back 12 hours out of 24. Continue previous medication of Amlodipine, aspirin, Wellbutrin, Vitamin B12. The patient's diet is regular to be given as many times as possible during the day. Drink Boost or Ensure to add more calories. Activity as tolerated with the use of a walker. Refer to [facility] or Home Health and check on medication. Physical and Occupational Therapy and evaluation by the home health nursing establishment, see me at the office June 17 at 9:30 in the morning. FINAL DIAGNOSES: 1. ACUTE COMPRESSION FRACTURE T12 2. ABDOMINAL PAIN MAY BE ABDOMINAL ANGINA 3. EPIGASTRIC PAIN MAY BE SECONDARY TO PEPTIC ULCER DISEASE, IMPROVED 4. PERSISTENT ANOREXIA, ETIOLOGY UNDETERMINED 5. DELAYED MEDIUM TRANSIT IN THE SMALL INTESTINE, CAUSE UNDETERMINED 6. HISTORY OF COLON CARCINOMA STATUS POST RIGHT HEMICOLECTOMY 7. MODERATE ANEMIA, MIXED ORIGIN 8. HISTORY OF CONFUSION 9. HISTORY OF RECURRENT FALLS 10. BILATERAL KNEE PAIN PROGNOSIS: Poor to very poor. I had discussed the possibility of senior care for longer period of therapy but the patient declined. She wanted to go home. [place]
== END 2017-06-10 13:30 | disposition home or self-care (01) | DRG 552 ==
LOC: SCU 15:22
PROVIDERS: ADMIT General Practice; ATTEND General Practice
DX: S22.080A Wedge compression fracture of T11-T12 vertebra, initial encounter for closed fracture (principal); K55.1 Chronic vascular disorders of intestine; K27.7 Chronic peptic ulcer, site unspecified, without hemorrhage or perforation; R63.0 Anorexia; K92.89 Other specified diseases of the digestive system; D64.9 Anemia, unspecified; R41.0 Disorientation, unspecified; M25.562 Pain in left knee; M25.561 Pain in right knee; R29.6 Repeated falls; Z79.899 Other long term (current) drug therapy; Z85.038 Personal history of other malignant neoplasm of large intestine; Z90.49 Acquired absence of other specified parts of digestive tract
CPT/HCPCS: 36415; 80053; 81001; 83880; 85025; 87086; 97802

== ENCOUNTER 2017-06-27 18:04 | Outpatient (CLI) ==
[2017-06-17 11:15] VITALS: BMI 11.7
== END 2017-06-27 18:05 ==
LOC: AMBL 18:04
PROVIDERS: ATTEND Internal Medicine Geriatric Medicine
DX: R06.9 Unspecified abnormalities of breathing (principal); R41.0 Disorientation, unspecified; R52 Pain, unspecified; Z99.81 Dependence on supplemental oxygen